=== PATIENT | female | born 2000 | race African-American/Black ===

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

== ENCOUNTER 2022-04-01 10:57 | Outpatient (REF) | payer OTHER, SELFPAY ==
[2022-04-01 13:24] LABS: Hematocrit 37.4 % (37.0-47.0); Hemoglobin 11.9 g/dl (12.0-16.0); Mean Corpuscular HGB Conc 31.8 g/dl (31.0-35.0); Mean Corpuscular Hemoglobin 29.6 pg (27.0-33.0); Mean Platelet Volume 11.4 fL (9.4-12.3); Platelet Count 322 X10*3/uL (160-400); Red Blood Count 4.02 X10*6/uL (4.20-5.50); Red Cell Distribution Width 13.2 % (11.0-16.0); White Blood Count 4.7 X10*3/uL (4.8-10.8)
[2022-04-01 13:51] LABS: Alanine Aminotransferase 18 U/L (0-31); Albumin Level 4.4 g/dL (3.5-5.0); Alkaline Phosphatase 70 U/L (39-117); Anion Gap 10 (12-20); Aspartate Amino Transferase 21 U/L (5-31); Bilirubin Total 0.5 mg/dL (0.0-1.0); Blood Urea Nitrogen 11 mg/dL (9-16); Calcium 9.1 mg/dL (8.4-10.2); Carbon Dioxide 26 mmol/L (22-29); Chloride 104 mmol/L (96-108); Cholesterol 175 mg/dL; Estimated Glomerular Filt Rate > 60; Glucose Fasting 80 mg/dL (60-99); HDL Cholesterol 43 mg/dL; LDL Cholesterol Calculated 123 mg/dl; Potassium 4.3 mmol/L (3.3-5.1); Sodium 136 mmol/L (135-145); Total Protein 7.6 g/dL (6.5-8.0); Triglycerides 49 mg/dL
[2022-04-01 14:12] LABS: TSH reflex Free T4 1.11 uIU/mL (0.32-4.0)
== END 2022-04-01 10:58 | disposition home or self-care (01) ==
LOC: HO.WFDLDS 10:57
PROVIDERS: Visit Provider Hospitalist
DX: Z00.00 Encounter for general adult medical examination without abnormal findings (principal)
CPT/HCPCS: 36415; 80053; 80061; 84443; 85027

== ENCOUNTER 2023-06-21 08:38 | Outpatient (AMB) | payer OTHER, SELFPAY ==
[2023-06-21 08:40] VITALS: BP 112/64; RESP 12; TEMP 36.5; BMI 26.3
--- NOTE | 2023-06-21 08:40 | MHC.PC.OV ---
Vital Signs 06/21/23 08:40 Height 5 ft 2.5 in Weight 146 lb 6 oz BMI 26.3 BP 112/64 Blood Pressure Location Lt brachial Position Sitting Respiration 12 Pulse Source Pulse Oximeter Temp 97.7 F Temp Source Temporal Artery Scan Oxygen Delivery Method Room Air Intake Visit Reasons: PE Intake Note: Patient states that she is wondering if provider could write a script for her sertraline, she just graduated college and was getting it prescribed by her school's [employer] and now that she graduated she would need someone to fill it. 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 Accompanied by: Self / Same As Patient Allergies No Known Allergies Allergy (Verified 06/21/23 08:55) Medication List - Last Reconciled 06/21/23 by Eugene Denson CNP etonogestrel (Nexplanon) subdermal sertraline 50 mg PO DAILY tretinoin 0.025% appl topical BEDTIME Tobacco use date assessed: 06/21/23 Dental Screening Dental Screen Date: 06/21/23 Did you have a dental visit in the last 12 months?: Yes Did you have a dental problem in the last 6 months where you did not have access to dental care?: No Was dental information given to patient?: Patient has dentist HPI HPI Comments History of Present Illness Details 23-year-old female presents for complete physical exam. Her last physical exam was in March 2022 by her former PCP, LILLIE, who was no longer in this practice. She is on Nexplanon contraceptive, tretinoin for acne, and sertraline for depression. She notes that she has been on sertraline, for difficulty concentrating and being organized, prescribed by the school [employer]. She states she graduated from college and requests that her PCP continue to prescribe the medication. She notes she has been taking the medication as prescribed with controlled symptoms. When asked, she states that she is interested in behavioral therapy. She notes that her last Pap smear test was at [facility] this year: normal She states she sexually active, in a monogamous relationship, and has no concerns for STD. 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 1. Little interest or pleasure in doing things: more than half the days 2. Feeling down, depressed, or hopeless: more than half the days 3. Trouble falling or staying asleep, or sleeping too much: nearly every day 4. Feeling tired or having little energy: nearly every day 5. Poor appetite or overeating: several days 6. Feeling bad about yourself - or that you are a failure or have let yourself or your family down: more than half the days 7. Trouble concentrating on things, such as reading the newspaper or watching television: nearly every day 8. Moving or speaking so slowly that other people could have noticed. Or the opposite - being so fidgety or restless that you have been moving around a lot more than usual: several days 9. Thoughts that you would be better off or of hurting yourself in some way: not at all Total score: 17 Depression Screening Interpretation: Positive Depression Screening Follow-up: Existing condition, In treatment and Community Mental Health Worker F/U Source: Developed by Drs. Tobias Olivia, Josey Hill, Larry Boucher and colleagues, with an educational zay from [employer]. Thrive Questionnaire Date Thrive assessed: 06/21/23 I am a: Patient What is your living situation today?: I have a steady place to live Within the past 12 months, did the food you bought not last and you didn't have the money to get more?: Never true Within the past 12 months, did you worry whether your food would run out before you got money to buy more?: Never true Do you have trouble paying for medicines?: No Do you have trouble getting transportation to medical appointments?: No Do you have trouble paying your heating and electricity bill?: No Do you have trouble taking care of your child, family member or friend?: No Do you have trouble with day-to-day activities such as bathing, preparing meals, shopping, managing finances, etc.?: No Are you currently unemployed and looking for a job?: No Are you interested in more education?: Yes Please select the resources that you would like help with: Education Currently or been in a relationship where the following occur: no concerns reported AUDIT C Alcohol Use Questionnaire (AUDIT-C) 1. How often do you have a drink containing alcohol?: 2-4 times a month 2. How many drinks containing alcohol do you have on a typical day when you are drinking?: 1 or 2 3. How often do you have six or more drinks on one occasion?: Never Total Score: 2 NINO-7 AMB Questionnaire NINO-7 Date NINO - 7 assessed: 06/21/23 Feeling nervous, anxious, or on edge: 2 = More than half the days Not being able to stop or control worryin = More than half the days Worrying too much about different things: 2 = More than half the days Trouble relaxin = More than half the days Being so restless that it is hard to sit still: 2 = More than half the days Becoming easily annoyed or irritable: 2 = More than half the days Feeling afraid as if something awful might happen: 1 = Several days Total NINO-7 score (0-4 normal; 5-9 mild; 10-14 moderate; 15-21 severe): 13 Source: Developed by Drs. Tobias Olivia, Josey Hill, Larry Boucher and colleagues, with an educational azy from [employer]. Review of Systems Const Details: Denies chills, Denies fatigue, Denies fever(s), Denies headache(s) and Denies weakness HEENT Denies change in vision, Denies dizziness, Denies headache(s), Denies hearing loss, Denies nasal congestion, Denies sinus pain, Denies sinus pressure and Denies sore throat Card Denies chest pain, Denies lightheadedness, Denies dyspnea and Denies other (palpitations) Resp Denies cough, Denies dyspnea and Denies wheezing GI Denies abdominal pain, Denies melena, Denies hematochezia, Denies change in bowel habits, Denies dyspepsia and Denies nausea Denies hematuria and Denies dysuria Musc Denies abnormal gait, Denies myalgias, Denies arthralgias, Denies numbness and Denies tingling Skin/Breast Denies rash, Denies unusual bruising and Denies wounds Neuro Denies abnormal gait, Denies dizziness, Denies headache(s), Denies memory loss, Denies numbness, Denies Sensory deficit (Neuro), Denies tingling and Denies weakness Psych Denies anxiety, Denies depression and Denies memory loss Endo Denies cold intolerance, Denies fatigue, Denies heat intolerance, Denies polydipsia and Denies polyuria Rob/Lymph Denies easy bleeding and Denies easy bruising Aller/Immun Denies wheezing Physical exam (Primary Care) Tobacco/Smoking Status: Tobacco use Status Tobacco use date assessed 04/01/22 04/01/22 10:28 Patient Tobacco Use Status Never used Tobacco 04/01/22 10:28 e-Cigarette/Vaping Use Never Used 04/01/22 10:28 Depression Screening Interpretation: Positive Depression Screening Follow-up: Existing condition, In treatment and Community Mental Health Worker F/U Thrive Assessment: Date of Thrive Assessment Date Thrive assessed 04/01/22 04/01/22 10:28 Currently or been in a relationship where the following occur: no concerns reported Const Other: General: no acute distress, well developed, alert and awake Nutritional Appearance: well nourished Orientation/consciousness: patient oriented x3 HENMT Head: Yes normocephalic and Yes atraumatic Ears: hearing grossly normal bilaterally and TM's normal bilaterally General nose exam: Normal external nose present and Normal nares present Mouth: Normal oral and palatal mucosa present and moist mucous membranes Teeth and gingiva: dentition normal Throat: Yes oropharynx normal Eyes Pupils: Equal, round and reactive pupils present and Pupil accommodation reflex normal EOM: EOMs intact bilaterally Neck Neck: Yes normal visual inspection, Yes no lymphadenopathy and Yes trachea midline Thyroid: Thyroid normal Carotids: no bruits Lymphatic: no lymphadenopathy noted Chest Chest palpation & inspection: normal inspection of the chest Resp Effort & Inspection: normal respiratory effort Auscultation: clear to auscultation bilaterally Cardio Rate: regular rate Rhythm: regular rhythm Heart sounds: S1 normal heart sound present, S2 normal heart sound present, no gallops, no murmurs and no rubs Bruits: no abdominal aortic bruits and no carotid bruits GI Palpation (GI): No Abdominal aortic bruit present, Soft to palpation, nontender, No hepatosplenomegaly present and No Rebound tenderness present Auscultation: normal bowel sounds General: Yes no CVA tenderness Back/Spine/Pelvis Back: no CVA tenderness Cervical Spine: cervical ROM normal and No Cervical spine tenderness Thoracic/Lumbar Spine: thoraco-lumbar ROM normal, No pain with thoraco-lumbar ROM, No thoracic spinal tenderness and No lumbar spinal tenderness Skin General: warm and dry. Normal skin color. Normal skin turgor Lesions: no lesions Rashes: no rashes Trauma: no lacerations or abrasions Wounds: no wounds Nails: normal Neuro General: patient oriented x3, gait normal and CN's II-XI intact bilaterally Cranial nerves: Yes Equal, round and reactive pupils present Cognition (Neuro): normal cognition Gait exam (Neuro): Normal gait present Motor exam (neuro): 5/5 motor strength present throughout Sensory Exam: No Sensory deficit (Neuro) Deep tendon reflexes (DTR's): Right patellar reflex intensity grade: 2+ and Left patellar reflex intensity grade: 2+ Extrem General: Yes normal to inspection, No edema and No calf tenderness Psych Appearance: grossly normal Affect: normal affect Attitude: cooperative Thought process: Normal thought process present Assessment and Plan Assessment & Plan (1) Normal physical exam: Code(s): Z00.00 - Encounter for general adult medical examination without abnormal findings Plan: No significant physical restrictions or limitations noted Advised to perform routine fasting blood work before her next visit Follow-up in 1 month or return sooner with symptoms or concerns Verbalized understanding and agreed with treatment plan. (2) Anxiety and depression: Code(s): F41.9 - Anxiety disorder, unspecified; F32.A - Depression, unspecified Plan: PHQ-9 and NINO-7 scores revealed moderately severe depression and moderate anxiety respectively Sertraline refill sent to the pharmacy. Take as prescribed Routine exercise encouraged She met with the community navigator who would refer her to a therapist Advised to follow-up in 1 month or return sooner with worsening or new symptoms Verbalized understanding and agreed with treatment plan. (3) Laboratory tests ordered as part of a complete physical exam (CPE): Code(s): Z00.00 - Encounter for general adult medical examination without abnormal findings Plan: Fasting labs ordered as part of a complete physical exam. Advised to fast for at least 10 hours before getting labs drawn. May drink water Verbalized understanding and agreed with treatment plan. Orders: Orders Complete Blood Count Auto Diff Today Z00.00 - Encounter for general adult medical examination without abnormal findings Comprehensive [place]. Panel Fast Today Z00.00 - Encounter for general adult medical examination without abnormal findings Lipid Panel Today Z00.00 - Encounter for general adult medical examination without abnormal findings TSH reflex Free T4 Today Z00.00 - Encounter for general adult medical examination without abnormal findings UA CC w/rflx Micro + Cult Today Z00.00 - Encounter for general adult medical examination without abnormal findings Medications: New sertraline 50 mg PO DAILY 30 tabs 3RF 30 days Coding Level of Care Code Est Pt Prev Care 18-39y(01856) Diagnoses Normal physical exam Z00.00 Anxiety and depression F41.9; F32.A Laboratory tests ordered as part of a complete physical exam (CPE) Z00.00
== END 2023-06-21 09:22 | disposition home or self-care (01) ==
PROVIDERS: PCP Hospitalist; Visit Provider Nurse Practitioner Family
DX: Z00.00 Encounter for general adult medical examination without abnormal findings (principal); F41.9 Anxiety disorder, unspecified; F32.A Depression, unspecified
CPT/HCPCS: 99395

== ENCOUNTER 2023-07-28 09:56 | Outpatient (AMB) | payer OTHER, SELFPAY ==
--- NOTE | 2023-07-28 10:03 | A.OFFPC_ITS ---
Vital Signs 07/28/23 10:04 Height 5 ft 2.5 in Weight 146 lb 8 oz BMI 26.4 BP 102/54 L Blood Pressure Location Rt brachial Position Sitting Respiration 13 Pulse 93 Pulse Source Pulse Oximeter Temp 98.9 F Temp Source Oral Pulse Oximetry (%) 99 Oxygen Delivery Method Room Air Intake Visit Reasons: BHUMIKA, f/u anxiety, depression, labs review Intake Note: Patient is here for a transfer of care from Nabila Garcia DNP to Eugene Denson DNP. Patient's last physical was 06/21/23 with MT. Patient is here to follow up with anxiety and depression. Patient has not obtained new labs since 04/01/2022. 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 Her last office visit was a month ago. A complete physical exam was done. Rou kvng labs were ordered. However, the patient has not gotten blood work done. She admits to taking her medications as prescribed. She reports irregular sleep patterns. She notes that she either sleep too much or not enough since her last visit. She takes melatonin intermittently. She states that she does not exercise. Our community navigator referred her to a therapist on her last visit. She notes that she has not been contacted to connect with a therapist. [facility] Medical History No pertinent past medical history Surgical History S/P wisdom tooth extraction Family History Mother Type II diabetes mellitus FH: HTN (hypertension) Social History Housing: Apartment Patient Tobacco Use Status: Never used Tobacco e-Cigarette/Vaping Use: Never Used Second Hand Smoke Exposure: Yes service: No Current occupational status: employed and student Current occupation: [employer] Cognitive needs: No Hearing needs: No Vision needs: No Questionnaire PHQ-9 Over the last 2 weeks, how often have you been bothered by any of the following problems? 1. Little interest or pleasure in doing things: more than half the days 2. Feeling down, depressed, or hopeless: several days 3. Trouble falling or staying asleep, or sleeping too much: nearly every day 4. Feeling tired or having little energy: nearly every day 5. Poor appetite or overeating: not at all 6. Feeling bad about yourself - or that you are a failure or have let yourself or your family down: not at all 7. Trouble concentrating on things, such as reading the newspaper or watching t elevision: nearly every day 8. Moving or speaking so slowly that other people could have noticed. Or the opposite - being so fidgety or restless that you have been moving around a lot more than usual: not at all 9. Thoughts that you would be better off or of hurting yourself in some way: not at all Total score: 12 Depression Screening Interpretation: Positive Depression Screening Follow-up: Existing condition, In treatment and Community Mental Health Worker F/U Depression Screening Done: Yes 80869 - PHQ-9 Billing: Yes Source: Developed by Drs. Tobias Olivia, Josey Hill, Larry Boucher and colleagues, with an educational zay from [employer]. Thrive Questionnaire Date Thrive assessed: 06/21/23 NINO-7 AMB Questionnaire NINO-7 Date NINO - 7 assessed: 07/28/23 Feeling nervous, anxious, or on edge: 2 = More than half the days Not being able to stop or control worryin = Several days Worrying too much about different things: 3 = Nearly every day Trouble relaxin = Nearly every day Being so restless that it is hard to sit still: 1 = Several days Becoming easily annoyed or irritable: 1 = Several days Feeling afraid as if something awful might happen: 1 = Several days Total NINO-7 score (0-4 normal; 5-9 mild; 10-14 moderate; 15-21 severe): 12 Source: Developed by Drs. Tobias Olivia, Josey Hill, Larry Boucher and colleagues, with an educational zay from [employer]. NINO-7 Assessment Billing NINO-7 Assessment Tool: NINO-7 Assessment 15809 Review of Systems Const Details: Const Denies chills, Denies fatigue, Denies fever(s), Denies headache(s) and Denies weakness ENT Denies dizziness and Denies headache(s) Card Denies chest pain, Denies lightheadedness, Denies dyspnea and Denies other (Palpitations) Resp Denies cough, Denies dyspnea, Denies wheezing and Denies other ( shortness of breath) GI Denies abdominal pain, Denies melena, Denies hematochezia, Denies change in bowel habits, Denies dyspepsia and Denies nausea Denies hematuria and Denies dysuria Musc Denies abnormal gait, Denies myalgias, Denies arthralgias, Denies numbness and Denies tingling Skin/Breast Denies rash, Denies unusual bruising and Denies wounds Neuro Denies abnormal gait, Denies dizziness, Denies headache(s), Denies memory loss, Denies numbness, Denies Sensory deficit (Neuro), Denies tingling and Denies weakness Psych Denies anxiety, Denies depression, Denies memory loss Endo Denies cold intolerance, Denies fatigue, Denies heat intolerance, Denies polydipsia and Denies polyuria Aller/Immun Denies wheezing Physical exam (Primary Care) Vital Signs: Last Vital Signs Temp 98.9 F 07/28/23 10:04 Pulse 93 07/28/23 10:04 Resp 13 07/28/23 10:04 BP 102/54 L 07/28/23 10:04 Pulse Ox 99 07/28/23 10:04 Oxygen Delivery Method Room Air 07/28/23 10:04 BMI result Body Mass Index 26.4 Tobacco/Smoking Status: Tobacco use Status Tobacco use date assessed 06/21/23 07/28/23 10:10 Patient Tobacco Use Status Never used Tobacco 07/28/23 10:10 e-Cigarette/Vaping Use Never Used 07/28/23 10:10 PHQ-9: PHQ-9 Score PHQ-9: Total score 12 07/28/23 10:22 Depression Screening Interpretation: Positive Depression Screening Follow-up: Existing condition, In treatment and Community Mental Health Worker F/U Thrive Assessment: Date of Thrive Assessment Date Thrive assessed 06/21/23 07/28/23 10:10 Const Other: General: no acute distress and well developed Nutritional Appearance: well nourished Orientation/consciousness: patient oriented x3 [facility]: Yes normocephalic and Yes atraumatic Eyes General: appearance normal, both eyes and all related structures Pupils: Equal, round and reactive pupils present EOM: EOMs intact bilaterally Resp Effort & Inspection: normal respiratory effort Auscultation: clear to auscultation bilaterally Cardio Rate: regular rate Rhythm: regular rhythm Heart sounds: S1 normal heart sound present, S2 normal heart sound present, no gallops, no murmurs and no rubs GI Palpation (GI): No Abdominal aortic bruit present, Soft to palpation, nontender, No hepatosplenomegaly present and No Rebound tenderness present Auscultation: normal bowel sounds General: Yes no CVA tenderness Back/Spine/Pelvis Back: no CVA tenderness Cervical Spine: cervical ROM normal and No Cervical spine tenderness Thoracic/Lumbar Spine: thoraco-lumbar ROM normal, No pain with thoraco-lumbar ROM, No thoracic spinal tenderness and No lumbar spinal tenderness Extrem General: Yes normal to inspection, No edema and No calf tenderness Skin General: warm and dry. Normal skin color. Normal skin turgor Lesions: no lesions Rashes: no rashes Trauma: no lacerations or abrasions Wounds: no wounds Nails: normal Neuro General: patient oriented x3, gait normal and no focal neuro deficit Cranial nerves: Yes Equal, round and reactive pupils present Cognition (Neuro): normal cognition Gait exam (Neuro): Normal gait present Sensory Exam: No Sensory deficit (Neuro) Psych Appearance: grossly normal Affect: normal affect Attitude: cooperative Thought process: Normal thought process present Assessment and Plan Assessment & Plan (1) Anxiety and depression: Code(s): F41.9 - Anxiety disorder, unspecified; F32.A - Depression, unspecified Plan: PHQ-9 and NINO-7 scores revealed moderate depression and anxiety She notes she has not been contacted to connect with a therapist She met with the community navigator who would follow-up with her existing therapist referral Advised continue to take sertraline as prescribed Routine exercise encouraged Advised to get routine fasting blood work done Follow-up in 2 months or return sooner with worsening or new symptoms Verbalized understanding and agreed with treatment plan. (2) Sleep disturbances: Code(s): G47.9 - Sleep disorder, unspecified Plan: She reports disturbed sleep patterns since her last visit. She sleeps inadequately or excessively Advised to take melatonin 3 mg every night She is a college student. Her sleep may also be affected by studies. Anxiety and depression may also be contributing factors Routine exercise encouraged Follow-up with worsening or new symptoms Verbalized understanding and agreed with treatment plan. Medications: Changed From sertraline 50 mg PO DAILY 30 days 30 tabs 3RF To sertraline 50 mg PO DAILY 90 days 90 tabs 1RF Coding Level of Care Code Est Pt Level 3 (37234) Diagnoses Anxiety and depression F41.9; F32.A Sleep disturbances G47.9 Additional Codes NINO-7 Assessment Billing - NINO-7 Assessment Tool: NINO-7 Assessment 07947 ([id number])
[2023-07-28 10:04] VITALS: BP 102/54; PULSE 93; RESP 13; TEMP 37.2; O2SAT 99; BMI 26.4
== END 2023-07-28 10:43 | disposition home or self-care (01) ==
PROVIDERS: PCP Hospitalist; Visit Provider Nurse Practitioner Family
DX: F41.9 Anxiety disorder, unspecified (principal); F32.A Depression, unspecified; G47.9 Sleep disorder, unspecified
CPT/HCPCS: 96127; 99213

== ENCOUNTER 2023-07-28 10:44 | Outpatient (REF) | payer OTHER, SELFPAY ==
[2023-07-28 14:26] LABS: MANUAL DIFF FLAG NO
[2023-07-28 14:28] LABS: Appearance Urine Turbid; Color Urine Dark Yellow; Glucose Urine UA Negative (Negative); Leukocyte Esterase Urine Negative (Negative); Nitrite Urine Negative (Negative); Specific Gravity - Urine >= 1.030 (1.005-1.025); Urine Blood Negative (Negative); Urine Ketones Trace mg/dL (Negative); Urine Protein Trace mg/dL (Neg-Trace)
[2023-07-28 14:37] LABS: Basophils Percent Auto 0.2 % (0-2); Eosinophils Absolute Auto 0.1 X10*3/uL (0.0-0.4); Eosinophils Percent Auto 1.2 % (0-4); Hematocrit 38.6 % (37.0-47.0); Hemoglobin 12.5 g/dl (12.0-16.0); Lymphocytes Absolute Auto 1.9 X10*3/uL (1.2-4.9); Lymphocytes Percent Auto 39.9 % (20-40); Mean Corpuscular HGB Conc 32.4 g/dl (31.0-35.0); Mean Corpuscular Hemoglobin 29.7 pg (27.0-33.0); Mean Corpuscular Volume 91.7 fL (80.0-98.0); Mean Platelet Volume 11.2 fL (9.4-12.3); Monocytes Absolute Auto 0.5 X10*3/uL (0.1-1.2); Neutrophils Absolute Auto 2.3 x10*3/uL (2.0-8.3); Neutrophils Percent Auto 47.7 % (45-73); Platelet Count 294 X10*3/uL (160-400); Red Blood Count 4.21 X10*6/uL (4.20-5.50); Red Cell Distribution Width 13.4 % (11.0-16.0); White Blood Count 4.8 X10*3/uL (4.8-10.8)
[2023-07-28 14:58] LABS: Alanine Aminotransferase 20 U/L (0-31); Albumin Level 4.3 g/dL (3.5-5.0); Alkaline Phosphatase 68 U/L (39-117); Anion Gap 9 (12-20); Aspartate Amino Transferase 21 U/L (5-31); Bilirubin Total 0.5 mg/dL (0.0-1.0); Blood Urea Nitrogen 10 mg/dL (9-16); Calcium 9.5 mg/dL (8.4-10.2); Carbon Dioxide 28 mmol/L (22-29); Chloride 107 mmol/L (96-108); Cholesterol 200 mg/dL (<200); Estimated Glomerular Filt Rate > 60; Glucose Fasting 82 mg/dL (60-99); HDL Cholesterol 44 mg/dL (>40); LDL Cholesterol Calculated 142 mg/dL (<100); Potassium 4.1 mmol/L (3.3-5.1); Sodium 140 mmol/L (135-145); Total Protein 8.1 g/dL (6.5-8.0); Triglycerides 74 mg/dL (<150)
[2023-07-28 15:29] LABS: TSH reflex Free T4 0.87 uIU/mL (0.32-4.0)
== END 2023-07-28 10:45 | disposition home or self-care (01) ==
LOC: HO.WFDLDS 10:44
PROVIDERS: Visit Provider Nurse Practitioner Family
DX: Z00.00 Encounter for general adult medical examination without abnormal findings (principal)
CPT/HCPCS: 36415; 80053; 80061; 81003; 84443; 85025

== ENCOUNTER 2024-04-04 16:03 | Outpatient (AMB) | payer OTHER, SELFPAY ==
--- NOTE | 2024-04-04 16:04 | MHC.PC.OV ---
Vital Signs 04/04/24 16:11 04/04/24 16:33 04/04/24 16:41 Height 5 ft 2.3 in Weight 145 lb 4 oz BMI 26.3 BP 118/67 166/81 H 110/80 Blood Pressure Location Rt brachial Lt brachial Rt brachial Position Sitting Sitting Sitting Respiration 16 Pulse 61 Pulse Source Pulse Oximeter Temp 97.5 F Temp Source Temporal Artery Scan Pulse Oximetry (%) 99 Oxygen Delivery Method Room Air Intake Visit Reasons: medication review Intake Note: patient here to follow up on medication. Laboratory Worker Required: No Is last menstrual period known: Yes Last menstrual period: 02/09/24 Post menopausal: No Patient : No Allergies No Known Allergies Allergy (Verified 04/04/24 16:20) Medication List - Last Reconciled 04/04/24 by Eugene Denson CNP etonogestrel (Nexplanon) subdermal sertraline 50 mg PO DAILY 30 days tretinoin 0.025% appl topical BEDTIME Tobacco use date assessed: 04/04/24 Dental Screening Dental Screen Date: 04/04/24 Did you have a dental visit in the last 12 months?: Yes Did you have a dental problem in the last 6 months where you did not have access to dental care?: No Was dental information given to patient?: Patient has dentist HPI HPI Comments History of Present Illness Details 23-year-old female presents for anxiety and depression follow-up She has history of anxiety and depression. She was on sertraline 50 mg daily until 01/2024 Her last office visit was on 07/28/2023. She has not followed up as planned She reports worsening anxiety and depressive symptoms. She states that Sertraline was initially effective. She was on the medication for almost a year. However, she started feeling lethargic on the medication, therefore, she stopped taking it and her lethargy resolved. She notes that she has been experiencing panic attacks, including heart racing, hand tremors, difficulty breathing, lack of concentration, and labile moods. Her panic attacks have been ongoing for the past 1 months and have progressively gotten worse, one to two times a daily at times. She states that she would sleep for 10-12 hours but still feels exhausted. She has not been exercising She had history of psychotherapy in college with significant improvement. 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 1. Little interest or pleasure in doing things: nearly every day 2. Feeling down, depressed, or hopeless: nearly every day 3. Trouble falling or staying asleep, or sleeping too much: nearly every day 4. Feeling tired or having little energy: nearly every day 5. Poor appetite or overeating: several days 6. Feeling bad about yourself - or that you are a failure or have let yourself or your family down: nearly every day 7. Trouble concentrating on things, such as reading the newspaper or watching television: nearly every day 8. Moving or speaking so slowly that other people could have noticed. Or the opposite - being so fidgety or restless that you have been moving around a lot more than usual: more than half the days 9. Thoughts that you would be better off or of hurting yourself in some way: not at all Total score: 21 Depression Screening Interpretation: Positive Depression Screening Follow-up: Existing condition, New Medication prescribed and Community Mental Health Worker F/U Depression Screening Done: Yes 12726 - PHQ-9 Billing: Yes Source: Developed by Drs. Tobias Olivia, Josey B.WLarry Astudillo and colleagues, with an educational zay from [employer]. Thrive Questionnaire Date Thrive assessed: 06/21/23 NINO-7 AMB Questionnaire NINO-7 Date NINO - 7 assessed: 04/04/24 Feeling nervous, anxious, or on edge: 3 = Nearly every day Not being able to stop or control worryin = Nearly every day Worrying too much about different things: 3 = Nearly every day Trouble relaxin = Nearly every day Being so restless that it is hard to sit still: 3 = Nearly every day Becoming easily annoyed or irritable: 2 = More than half the days Feeling afraid as if something awful might happen: 2 = More than half the days Total NINO-7 score (0-4 normal; 5-9 mild; 10-14 moderate; 15-21 severe): 19 Source: Developed by Drs. Tobias Olivia, Larry Berkowitz and colleagues, with an educational zay from [employer]. NINO-7 Assessment Billing NINO-7 Assessment Tool: NINO-7 Assessment 88200 Review of Systems Const Details: Const Denies chills, Denies fatigue, Denies fever(s), Denies headache(s) and Denies weakness ENT Denies dizziness and Denies headache(s) Card Denies chest pain, Denies lightheadedness, Denies dyspnea and Denies other (Palpitations) Resp Denies cough, Denies dyspnea, Denies wheezing and Denies other ( shortness of breath) GI Denies abdominal pain, Denies melena, Denies hematochezia, Denies change in bowel habits, Denies dyspepsia and Denies nausea Denies hematuria and Denies dysuria Musc Denies abnormal gait, Denies myalgias, Denies arthralgias, Denies numbness and Denies tingling Skin/Breast Denies rash, Denies unusual bruising and Denies wounds Neuro Denies abnormal gait, Denies dizziness, Denies headache(s), Denies memory loss, Denies numbness, Denies Sensory deficit (Neuro), Denies tingling and Denies weakness Psych Reports anxiety, Reports depression, Denies memory loss Endo Denies cold intolerance, Denies fatigue, Denies heat intolerance, Denies polydipsia and Denies polyuria Aller/Immun Denies wheezing Physical exam (Primary Care) Vital Signs: Last Vital Signs Temp 97.5 F 04/04/24 16:11 Pulse 61 04/04/24 16:11 Resp 16 04/04/24 16:11 BP 110/80 04/04/24 16:41 Pulse Ox 99 04/04/24 16:11 Oxygen Delivery Method Room Air 04/04/24 16:11 BMI result Body Mass Index 26.3 Tobacco/Smoking Status: Tobacco use Status Tobacco use date assessed 04/04/24 04/04/24 16:16 Patient Tobacco Use Status Never used Tobacco 04/04/24 16:07 e-Cigarette/Vaping Use Never Used 04/04/24 16:07 Depression Screening Interpretation: Positive Depression Screening Follow-up: Existing condition, New Medication prescribed and Community Mental Health Worker F/U Thrive Assessment: Date of Thrive Assessment Date Thrive assessed 06/21/23 04/04/24 16:07 Const Other: General: no acute distress and well developed Nutritional Appearance: well nourished Orientation/consciousness: patient oriented x3 HENMT Head: Yes normocephalic and Yes atraumatic Eyes General: appearance normal, both eyes and all related structures Pupils: Equal, round and reactive pupils present EOM: EOMs intact bilaterally Resp Effort & Inspection: normal respiratory effort Auscultation: clear to auscultation bilaterally Cardio Rate: regular rate Rhythm: regular rhythm Heart sounds: S1 normal heart sound present, S2 normal heart sound present, no gallops, no murmurs and no rubs GI Palpation (GI): No Abdominal aortic bruit present, Soft to palpation, nontender, No hepatosplenomegaly present and No Rebound tenderness present Auscultation: normal bowel sounds General: Yes no CVA tenderness Back/Spine/Pelvis Back: no CVA tenderness Cervical Spine: cervical ROM normal and No Cervical spine tenderness Thoracic/Lumbar Spine: thoraco-lumbar ROM normal, No pain with thoraco-lumbar ROM, No thoracic spinal tenderness and No lumbar spinal tenderness Extrem General: Yes normal to inspection, No edema and No calf tenderness Skin General: warm and dry. Normal skin color. Normal skin turgor Neuro General: patient oriented x3, gait normal and no focal neuro deficit Cranial nerves: Yes Equal, round and reactive pupils present Cognition (Neuro): normal cognition Gait exam (Neuro): Normal gait present Sensory Exam: No Sensory deficit (Neuro) Psych Appearance: grossly normal Affect: normal affect Attitude: cooperative Thought process: Normal thought process present Assessment and Plan Assessment & Plan (1) Anxiety and depression: Code(s): F41.9 - Anxiety disorder, unspecified; F32.A - Depression, unspecified Plan: Increased anxiety and depressive symptoms and panic attacks PHQ-9 and NINO-7 scores revealed severe depression and anxiety She was lethargic on sertraline Will start fluoxetine. Advised to take as prescribed. Instructed on the risks, benefits, and potential adverse reactions of the medication Routine exercise encouraged Message sent to the CHW to send a new referral for psychotherapy Follow-up in 2 weeks or sooner with worsening or new symptoms Verbalized understanding and agreed with treatment plan (2) Panic attacks: Code(s): F41.0 - Panic disorder [episodic paroxysmal anxiety] Plan: As above Medications: New fluoxetine 20 mg PO DAILY 30 days 30 tabs 3RF Discontinued sertraline Discontinued Reason: Doctor's Order 50 mg PO DAILY 30 days 30 tabs 0RF Coding Level of Care Code Est Pt Level 4 (23109) Complex EM visit Add On G2211 Diagnoses Anxiety and depression F41.9; F32.A Panic attacks F41.0 Additional Codes NINO-7 Assessment Billing - NINO-7 Assessment Tool: NINO-7 Assessment 10890 ([id number])
[2024-04-04 16:11] VITALS: BP 118/67; PULSE 61; RESP 16; TEMP 36.4; O2SAT 99; BMI 26.3
[2024-04-04 16:33] VITALS: BP 166/81
[2024-04-04 16:41] VITALS: BP 110/80
== END 2024-04-04 16:41 | disposition home or self-care (01) ==
PROVIDERS: PCP Nurse Practitioner Family; Visit Provider Nurse Practitioner Family
DX: F41.9 Anxiety disorder, unspecified (principal); F32.A Depression, unspecified; F41.0 Panic disorder [episodic paroxysmal anxiety]
CPT/HCPCS: 96127; 99214; G2211

== ENCOUNTER 2024-04-25 10:27 | Outpatient (AMB) | payer OTHER, SELFPAY ==
--- NOTE | 2024-04-25 10:31 | A.OFFPC_ITS ---
Vital Signs 04/25/24 10:36 Height 5 ft 2 in Weight 141 lb 4 oz BMI 25.8 BP 104/84 Blood Pressure Location Lt brachial Position Sitting Respiration 16 Pulse 81 Pulse Source Pulse Oximeter Temp 98.4 F Temp Source Oral Pulse Oximetry (%) 97 Oxygen Delivery Method Room Air Intake Visit Reasons: 2 wks anxiety, depression, panic attack Intake Note: patient here for 2 wk follow up for anxiety, depression, panic attacks. Post Adoption Coordinator Required: No Is last menstrual period known: Yes Last menstrual period: 02/09/24 Post menopausal: No Patient : No Allergies No Known Allergies Allergy (Verified 04/25/24 10:47) Medication List - Last Reconciled 04/25/24 by Eugene Denson CNP etonogestrel (Nexplanon) subdermal fluoxetine 20 mg PO DAILY 30 days tretinoin 0.025% appl topical BEDTIME Tobacco use date assessed: 04/25/24 Dental Screening Dental Screen Date: 04/25/24 Did you have a dental visit in the last 12 months?: No Did you have a dental problem in the last 6 months where you did not have access to dental care?: No Was dental information given to patient?: Patient has dentist HPI HPI Comments History of Present Illness Details 23-year-old female presents for anxiety, depression, and panic attacks follow-up She was started on fluoxetine about 3 weeks ago. She admits to taking the medication as prescribed without adverse reactions She notes that I feel a little bit better, but still continues to experience some panic symptoms, including tremors and racing heart, and mild shortness of breath, especially in the morning. She sleeps too much most times, but sometimes it hard to fall asleep. She has not started exercise She denies SI/HI CHW referred him to psych wellness group. However, she has not been contacted to establish with a therapist [facility]MERLY [facility] Medical History No pertinent past medical history Surgical History S/P wisdom tooth extraction Family History Mother Type II diabetes mellitus FH: HTN (hypertension) Social History (Reviewed 07/28/23 @ 10:11 by ENRIQUETA Bach Housing: Apartment Patient Tobacco Use Status: Never used Tobacco e-Cigarette/Vaping Use: Never Used Second Hand Smoke Exposure: Yes Patient : No service: No Current occupational status: employed and student Current occupation: [place] Cognitive needs: No Hearing needs: No Vision needs: No Female Reproductive History Menstrual Date of last menstrual period: 02/09/24 Questionnaire PHQ-9 Over the last 2 weeks, how often have you been bothered by any of the following problems? 1. Little interest or pleasure in doing things: more than half the days 2. Feeling down, depressed, or hopeless: more than half the days 3. Trouble falling or staying asleep, or sleeping too much: more than half the days 4. Feeling tired or having little energy: nearly every day 5. Poor appetite or overeating: several days 6. Feeling bad about yourself - or that you are a failure or have let yourself or your family down: nearly every day 7. Trouble concentrating on things, such as reading the newspaper or watching television: nearly every day 8. Moving or speaking so slowly that other people could have noticed. Or the opposite - being so fidgety or restless that you have been moving around a lot more than usual: several days 9. Thoughts that you would be better off or of hurting yourself in some way: not at all Total score: 17 Depression Screening Interpretation: Positive Depression Screening Follow-up: Existing condition and In treatment Depression Screening Done: Yes 97304 - PHQ-9 Billing: Yes Source: Developed by Drs. Tobias Olivia, Josey Hill, Larry Boucher and colleagues, with an educational zay from [employer]. Thrive Questionnaire Date Thrive assessed: 06/21/23 NINO-7 AMB Questionnaire NINO-7 Date NINO - 7 assessed: 04/25/24 Feeling nervous, anxious, or on edge: 2 = More than half the days Not being able to stop or control worryin = Nearly every day Worrying too much about different things: 3 = Nearly every day Trouble relaxin = More than half the days Being so restless that it is hard to sit still: 1 = Several days Becoming easily annoyed or irritable: 2 = More than half the days Feeling afraid as if something awful might happen: 1 = Several days Total NINO-7 score (0-4 normal; 5-9 mild; 10-14 moderate; 15-21 severe): 14 Source: Developed by Drs. Tobias Olivia, Josey Hill, Larry Boucher and colleagues, with an educational zay from [employer]. NINO-7 Assessment Billing NINO-7 Assessment Tool: NINO-7 Assessment 58786 Review of Systems Const Details: Const Denies chills, Denies fatigue, Denies fever(s), Denies headache(s) and Denies weakness ENT Denies dizziness and Denies headache(s) Card Denies chest pain, Denies lightheadedness, Denies dyspnea and Denies other (Palpitations) Resp Denies cough, Denies dyspnea, Denies wheezing and Denies other ( shortness of breath) GI Denies abdominal pain, Denies melena, Denies hematochezia, Denies change in bowel habits, Denies dyspepsia and Denies nausea Denies hematuria and Denies dysuria Musc Denies abnormal gait, Denies myalgias, Denies arthralgias, Denies numbness and Denies tingling Skin/Breast Denies rash, Denies unusual bruising and Denies wounds Neuro Denies abnormal gait, Denies dizziness, Denies headache(s), Denies memory loss, Denies numbness, Denies Sensory deficit (Neuro), Denies tingling and Denies weakness Psych Reports anxiety, Reports depression, Denies memory loss Endo Denies cold intolerance, Denies fatigue, Denies heat intolerance, Denies polydipsia and Denies polyuria Aller/Immun Denies wheezing Physical exam (Primary Care) Vital Signs: Last Vital Signs Temp 98.4 F 04/25/24 10:36 Pulse 81 04/25/24 10:36 Resp 16 04/25/24 10:36 BP 104/84 04/25/24 10:36 Pulse Ox 97 04/25/24 10:36 Oxygen Delivery Method Room Air 04/25/24 10:36 BMI result Body Mass Index 25.8 Tobacco/Smoking Status: Tobacco use Status Tobacco use date assessed 04/25/24 04/25/24 10:36 Patient Tobacco Use Status Never used Tobacco 04/25/24 10:33 e-Cigarette/Vaping Use Never Used 04/25/24 10:33 PHQ-9: PHQ-9 Score PHQ-9: Total score 17 04/25/24 10:42 Depression Screening Interpretation: Positive Depression Screening Follow-up: Existing condition and In treatment Thrive Assessment: Date of Thrive Assessment Date Thrive assessed 06/21/23 04/25/24 10:33 Const Other: General: no acute distress and well developed Nutritional Appearance: well nourished Orientation/consciousness: patient oriented x3 HENKS Head: Yes normocephalic and Yes atraumatic Eyes General: appearance normal, both eyes and all related structures Pupils: Equal, round and reactive pupils present EOM: EOMs intact bilaterally Resp Effort & Inspection: normal respiratory effort Auscultation: clear to auscultation bilaterally Cardio Rate: regular rate Rhythm: regular rhythm Heart sounds: S1 normal heart sound present, S2 normal heart sound present, no gallops, no murmurs and no rubs GI Palpation (GI): No Abdominal aortic bruit present, Soft to palpation, nontender, No hepatosplenomegaly present and No Rebound tenderness present Auscultation: normal bowel sounds General: Yes no CVA tenderness Back/Spine/Pelvis Back: no CVA tenderness Cervical Spine: cervical ROM normal and No Cervical spine tenderness Thoracic/Lumbar Spine: thoraco-lumbar ROM normal, No pain with thoraco-lumbar ROM, No thoracic spinal tenderness and No lumbar spinal tenderness Extrem General: Yes normal to inspection, No edema and No calf tenderness Skin General: warm and dry. Normal skin color. Normal skin turgor Neuro General: patient oriented x3, gait normal and no focal neuro deficit Cranial nerves: Yes Equal, round and reactive pupils present Cognition (Neuro): normal cognition Gait exam (Neuro): Normal gait present Sensory Exam: No Sensory deficit (Neuro) Psych Appearance: grossly normal Affect: normal affect Attitude: cooperative Thought process: Normal thought process present Assessment and Plan Assessment & Plan (1) Anxiety and depression: Code(s): F41.9 - Anxiety disorder, unspecified; F32.A - Depression, unspecified Plan: She notes improvement of anxiety and depressive symptoms but still continues to experience some panic symptoms PHQ-9 and NINO-7 scores revealed moderately severe depression and moderate anxiety respectively Continue to take fluoxetine as prescribed Will start hydroxyzine 25 mg twice daily to target anxiety, panic symptoms, and sleep disturbance. Instructed on the risks, benefits, and potential adverse reactions of the medications Routine exercise encouraged She met with the CHW to discuss psychotherapy referral Advised to follow-up in 2 weeks or sooner with worsening or new symptoms Verbalized understanding and agreed with the treatment plan (2) Panic attacks: Code(s): F41.0 - Panic disorder [episodic paroxysmal anxiety] Plan: As above Medications: New hydroxyzine HCl 25 mg PO BID PRN 30 tabs 1RF itching Coding Level of Care Code Est Pt Level 4 (66476) Complex EM visit Add On G2211 Diagnoses Anxiety and depression F41.9; F32.A Panic attacks F41.0 Additional Codes NINO-7 Assessment Billing - NINO-7 Assessment Tool: NINO-7 Assessment [id number] ([id number])
[2024-04-25 10:36] VITALS: BP 104/84; PULSE 81; RESP 16; TEMP 36.9; O2SAT 97; BMI 25.8
== END 2024-04-25 11:06 | disposition home or self-care (01) ==
PROVIDERS: PCP Nurse Practitioner Family; Visit Provider Nurse Practitioner Family
DX: F41.9 Anxiety disorder, unspecified (principal); F32.A Depression, unspecified; F41.0 Panic disorder [episodic paroxysmal anxiety]
CPT/HCPCS: 96127; 99214; G2211

== ENCOUNTER 2024-05-16 09:59 | Outpatient (AMB) | payer OTHER, SELFPAY ==
--- NOTE | 2024-05-16 10:02 | A.OFFPC_ITS ---
Vital Signs 05/16/24 10:07 Height 5 ft 2 in Weight 142 lb BMI 26.0 BP 112/70 Blood Pressure Location Rt brachial Position Sitting Respiration 16 Pulse 94 Pulse Source Pulse Oximeter Temp 98.2 F Temp Source Oral Pulse Oximetry (%) 98 Oxygen Delivery Method Room Air Intake Visit Reasons: 3 wks anxiety, depression, panic attack Intake Note: patient here for 3 week follow up on anxiety, depression, and panic attack. 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 Is last menstrual period known: Yes Last menstrual period: 02/09/24 Post menopausal: No Patient : No Allergies No Known Allergies Allergy (Verified 05/16/24 10:34) Medication List - Last Reconciled 05/16/24 by Eugene Denson CNP etonogestrel (Nexplanon) subdermal fluoxetine 20 mg PO DAILY 30 days hydroxyzine HCl 25 mg PO BID PRN tretinoin 0.025% appl topical BEDTIME Tobacco use date assessed: 05/16/24 Dental Screening Dental Screen Date: 04/25/24 HPI HPI Comments History of Present Illness Details 23-year-old female presents for anxiety, depression, and panic attacks follow-up She admits to taking her medications as prescribed without adverse reactions She reports controlled anxiety and depressive symptoms on current treatment regimen She is excited after she learned last week that she is accepted to medical 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 She will be traveling to [facility] on Wednesday. She plans on returning in August She was contacted for psychotherapy and was scheduled to start in June. However, she plans on utilizing psychotherapy services at the [facility]. She will also inquire about getting her current medication prescribed from the [facility] She denies acute symptoms at this time She request lab work for T spot, MMR, and varicella for school. 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 1. Little interest or pleasure in doing things: more than half the days 2. Feeling down, depressed, or hopeless: more than half the days 3. Trouble falling or staying asleep, or sleeping too much: several days 4. Feeling tired or having little energy: more than half the days 5. Poor appetite or overeating: not at all 6. Feeling bad about yourself - or that you are a failure or have let yourself or your family down: more than half the days 7. Trouble concentrating on things, such as reading the newspaper or watching television: several days 8. Moving or speaking so slowly that other people could have noticed. Or the opposite - being so fidgety or restless that you have been moving around a lot more than usual: not at all 9. Thoughts that you would be better off or of hurting yourself in some way: not at all Total score: 10 Depression Screening Interpretation: Positive Depression Screening Follow-up: Existing condition and In treatment Depression Screening Done: Yes 31785 - PHQ-9 Billing: Yes Source: Developed by Drs. Tobias Olivia, Josey Hill, Larry Boucher and colleagues, with an educational zay from [email or web address]. Thrive Questionnaire Date Thrive assessed: 06/21/23 NINO-7 AMB Questionnaire NINO-7 Date NINO - 7 assessed: 05/16/24 Feeling nervous, anxious, or on edge: 2 = More than half the days Not being able to stop or control worryin = Several days Worrying too much about different things: 2 = More than half the days Trouble relaxin = More than half the days Being so restless that it is hard to sit still: 1 = Several days Becoming easily annoyed or irritable: 2 = More than half the days Feeling afraid as if something awful might happen: 3 = Nearly every day Total NINO-7 score (0-4 normal; 5-9 mild; 10-14 moderate; 15-21 severe): 13 Source: Developed by Drs. Tobias Olivia, Josey Hill, Larry Boucher and colleagues, with an educational zay from [email or web address]. NINO-7 Assessment Billing NINO-7 Assessment Tool: NINO-7 Assessment 55419 Review of Systems Const Details: Const Denies chills, Denies fatigue, Denies fever(s), Denies headache(s) and Denies weakness ENT Denies dizziness and Denies headache(s) Card Denies chest pain, Denies lightheadedness, Denies dyspnea and Denies other (Pa lpitations) Resp Denies cough, Denies dyspnea, Denies wheezing and Denies other ( shortness of breath) GI Denies abdominal pain, Denies melena, Denies hematochezia, Denies change in bowel habits, Denies dyspepsia and Denies nausea Denies hematuria and Denies dysuria Musc Denies abnormal gait, Denies myalgias, Denies arthralgias, Denies numbness and Denies tingling Skin/Breast Denies rash, Denies unusual bruising and Denies wounds Neuro Denies abnormal gait, Denies dizziness, Denies headache(s), Denies memory loss, Denies numbness, Denies Sensory deficit (Neuro), Denies tingling and Denies weakness Psych Denies anxiety, Denies depression, Denies memory loss Endo Denies cold intolerance, Denies fatigue, Denies heat intolerance, Denies polydipsia and Denies polyuria Aller/Immun Denies wheezing Physical exam (Primary Care) Vital Signs: Last Vital Signs Temp 98.2 F 05/16/24 10:07 Pulse 94 05/16/24 10:07 Resp 16 05/16/24 10:07 BP 112/70 05/16/24 10:07 Pulse Ox 98 05/16/24 10:07 Oxygen Delivery Method Room Air 05/16/24 10:07 BMI result Body Mass Index 26.0 Tobacco/Smoking Status: Tobacco use Status Tobacco use date assessed 05/16/24 05/16/24 10:10 Patient Tobacco Use Status Never used Tobacco 05/16/24 10:03 e-Cigarette/Vaping Use Never Used 05/16/24 10:03 PHQ-9: PHQ-9 Score PHQ-9: Total score 10 05/16/24 10:10 Depression Screening Interpretation: Positive Depression Screening Follow-up: Existing condition and In treatment Thrive Assessment: Date of Thrive Assessment Date Thrive assessed 06/21/23 05/16/24 10:03 Const Other: General: no acute distress and well developed Nutritional Appearance: well nourished Orientation/consciousness: patient oriented x3 HENMT Head: Yes normocephalic and Yes atraumatic Eyes General: appearance normal, both eyes and all related structures Pupils: Equal, round and reactive pupils present EOM: EOMs intact bilaterally Resp Effort & Inspection: normal respiratory effort Auscultation: clear to auscultation bilaterally Cardio Rate: regular rate Rhythm: regular rhythm Heart sounds: S1 normal heart sound present, S2 normal heart sound present, no gallops, no murmurs and no rubs GI Palpation (GI): No Abdominal aortic bruit present, Soft to palpation, nontender, No hepatosplenomegaly present and No Rebound tenderness present Auscultation: normal bowel sounds General: Yes no CVA tenderness Back/Spine/Pelvis Back: no CVA tenderness Cervical Spine: cervical ROM normal and No Cervical spine tenderness Thoracic/Lumbar Spine: thoraco-lumbar ROM normal, No pain with thoraco-lumbar ROM, No thoracic spinal tenderness and No lumbar spinal tenderness Extrem General: Yes normal to inspection, No edema and No calf tenderness Skin General: warm and dry. Normal skin color. Normal skin turgor Neuro General: patient oriented x3, gait normal and no focal neuro deficit Cranial nerves: Yes Equal, round and reactive pupils present Cognition (Neuro): normal cognition Gait exam (Neuro): Normal gait present Sensory Exam: No Sensory deficit (Neuro) Psych Appearance: grossly normal Affect: normal affect Attitude: cooperative Thought process: Normal thought process present Assessment and Plan Assessment & Plan (1) Anxiety and depression: Code(s): F41.9 - Anxiety disorder, unspecified; F32.A - Depression, unspecified Plan: Controlled anxiety and depressive symptoms PHQ-9 and NINO-7 scores revealed moderate depression and anxiety respectively Continue current treatment regimen. Medications refilled with 90 day supply Routine exercise encouraged Follow-up in 4 months or sooner with worsening or new symptoms Verbalized understanding and agreed with treatment plan (2) Panic attacks: Code(s): F41.0 - Panic disorder [episodic paroxysmal anxiety] Plan: Plan as above (3) Encounter for counseling regarding immunization: Code(s): Z71.85 - Encounter for immunization safety counseling Plan: T spot, MMR, and varicella Labs ordered. Will review results and complete and sign health form Orders: Orders T Spot TB Today Z71. - Encounter for immunization safety counseling Hepatitis B,C Profile Today Z71. - Encounter for immunization safety counseling MMR IgG Measles Mumps Rubella Today Z71. - Encounter for immunization safety counseling Varicella IgG Antibody Today Z71. - Encounter for immunization safety counseling Medications: Changed From fluoxetine 20 mg PO DAILY 30 days 30 tabs 3RF To fluoxetine 20 mg PO DAILY 90 days 90 tabs 1RF Refilled hydroxyzine HCl 25 mg PO BID PRN 90 tabs 1RF itching Coding Level of Care Code Est Pt Level 4 (93356) Complex EM visit Add On G2211 Diagnoses Anxiety and depression F41.9; F32.A Panic attacks F41.0 Encounter for counseling regarding immunization Z71. Additional Codes NINO-7 Assessment Billing - NINO-7 Assessment Tool: NINO-7 Assessment 66042 ([id number])
[2024-05-16 10:07] VITALS: BP 112/70; PULSE 94; RESP 16; TEMP 36.8; O2SAT 98; BMI 26.0
== END 2024-05-16 10:49 | disposition home or self-care (01) ==
PROVIDERS: PCP Nurse Practitioner Family; Visit Provider Nurse Practitioner Family
DX: F41.9 Anxiety disorder, unspecified (principal); F32.A Depression, unspecified; F41.0 Panic disorder [episodic paroxysmal anxiety]; Z71.85 Encounter for immunization safety counseling
CPT/HCPCS: 96127; 99214; G2211

== ENCOUNTER 2024-05-16 10:59 | Outpatient (REF) | payer OTHER, SELFPAY ==
[2024-05-17 05:06] LABS: HBS Num1 9.07 mIU/mL (0-7.99); HBc Num1 0.23 S/CO (0.00-0.79); Hepatitis B Core Antibody Nonreactive (Nonreactive); Hepatitis B Surface Antigen Negative (Negative); ~HepC Num1 0.16 S/CO (0.00-0.79); ~Hepatitis C Antibody Nonreactive (Nonreactive)
[2024-05-17 06:10] LABS: HBS Num2 8.56 mIU/mL (0-7.99); HBS Num3 8.35 mIU/mL (0-7.99); ~Hepatitis B Surface Antibody GRAYZONE (Nonreactive)
[2024-05-17 21:54] LABS: Varicella IgG Antibody >4000.00 index
[2024-05-18 02:08] LABS: Mumps Virus IgG Antibody >300.00 AU/mL; Rubella IgG Antibody 8.42 Index
[2024-05-19 00:27] LABS: TS Negative Control Passed; TS Panel A 0; TS Panel B 0; TS Positive Control Passed; TSpotTB Negative (Negative)
== END 2024-05-16 11:00 | disposition home or self-care (01) ==
LOC: HO.WFDLDS 10:59
PROVIDERS: Visit Provider Nurse Practitioner Family
DX: Z71.85 Encounter for immunization safety counseling (principal)
CPT/HCPCS: 36415; 86481; 86704; 86706; 86735; 86762; 86765; 86787; 86803; 87340

== ENCOUNTER → 2024-05-19 15:35 | Outpatient (AMB) | payer OTHER, SELFPAY ==
--- OUTSIDE RECORDS SUMMARY | 2024-05-19 15:37 | XMS_ITS | Continuity of Care Document ---
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 Name Role Phone Petey ALICIA, Rosalinda Primary Care Physician [phone] Encounter [facility] [place] Date(s): 01/23/20 - 01/30/20 [facility] [address] [place] [address]- [facility] Attending Physician: Peter Corral MD Allergies, Adverse Reactions, Alerts Substance Reaction Severity Status NKA Active Medications inFLIXimab-dyyb 100 mg intravenous injection See Instructions, 600 mg q 6 weeks IV Infusion, # 6 each, 11 Refills, Maintenance, 11/15/19 11:31:00 EST, [facility], 159.2, cm, 04/27/19 15:25:00 EDT, Height, 55.5, kg, 04/27/19 15:25:00 EDT, Dry Weight Start Date: 11/15/19 Status: Ordered Ortho Micronor 0.35 mg oral tablet 1 tablet = 0.35 mg, By Mouth, Daily, # 84 tablet, 2 Refills, Maintenance, 11/28/19 16:36:00 EDT, Tablet, [id number], please give 3 month supply (3 packs) at a time, 161, cm, 11/28/19 16:07:00EDT, Height, 60.5, kg, 11/28/19 16:07:00 EDT, Dry W... Start Date: 11/28/19 Status: Ordered Pepcid AC Maximum Strength 20 mg oral tablet 20 mg, By Mouth, 2 times a day, # 60 Doses, Refills 6, Tot. Refills 6, Maintenance, 08/05/19 12:19:20 EST, Route to Pharmacy Electronically, [id number], [id number] Start Date: 08/05/19 Stop Date: 03/02/20 Status: Ordered Vitamin D3 2000 intl units oral tablet 1 tablet = 2,000 International_Units, By Mouth, Daily, # 30 tablet, 6 Refills, Maintenance, 01/11/19 22:02:29 EDT Start Date: 01/11/19 Stop Date: 08/09/19 Status: Ordered Problem List Condition Effective Dates Status Health Status Inform ant Abdominal pain(Confirmed) Active Crohns disease(Confirmed) Active Vital Signs Most recent to oldest [Reference Range]: 1 Height 161 cm (01/23/20 8:38 AM) Weight 60.5 kg (01/23/20 8:38 AM) Body Mass Index [18.5-24.99] 23.34 (01/23/20 8:38 AM) Dry Weight 60.5 kg (01/23/20 8:38 AM) Social History Social History Type Response Smoking Status Never (less than 100 in lifetime); Tobacco user in household: No entered on: 12/14/18 Sex
--- OUTSIDE RECORDS SUMMARY | 2024-05-19 15:37 | XMS_ITS | Continuity of Care Document ---
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 Name Role Phone Radha FELICIANO, Nabila Rucker Primary Care Physician [phone] [id number] Date[facility] - [facility]16/[facility] [employer] [facility] [address], [address] [place], [place] [address] Allergies, Adverse Reactions, Alerts No Known Allergies Medications ethinyl estradiol-norethindrone 35 mcg-1 mg oral tablet 1 tablet, By Mouth, Daily, # 28 tablet, 6 Refills, Maintenance, 12/29/22 17:41:00 EDT, Tablet, [id number], Partial fill upon patient request if the prescription is for a schedule II opioid drug., 1 tablet By Mouth Daily, 160.8, cm, 12/29/22 15... Start Date: 12/29/22 Status: Ordered melatonin 3 mg oral tablet 1 tablet = 3 mg, By Mouth, Daily at bedtime, PRN for insomnia, 1-2 tablets at night as needed, # 60tablet, 1 Refills, Maintenance, 12/02/20 11:04:00 EDT, Tablet, [id number], Partial fill upon patient request if the prescription is for a sched... Start Date: 12/02/20 Status: Ordered Nexplanon 68 mg subcutaneous implant 1 each = 68 mg, Subcutaneous Infusion, Once, mail to [address] [place] [address], [address], # 1 each, 0 Refills, Soft Stop, 03/17/23 10:48:00 EDT, [facility] fill upon patient request if the prescription is for a schedule I... Start Date: 03/17/23 Status: Ordered sertraline 50 mg oral tablet 1 tablet = 50 mg, By Mouth, Daily, # 30 tablet, 0 Refills, Maintenance, 12/29/22 15:13:00 EDT, Tablet, Partial fill upon patient request if the prescription is for a schedule II opioid drug. Start Date: 12/29/22 Status: Ordered Problem List Condition Confirmation Course Effective Dates Status Health St atus Informant Abdominal pain Confirmed Active Crohns disease Confirmed Active Dysmenorrhea Confirmed Active autoimmune hepatitis Confirmed Active Social History Social History Type Response Smoking Status Never (less than 100 in lifetime); Tobacco user in household: No entered on: 12/14/18 Sex Patient Care team information Care Team Personnel Name: Masha Perez RN Position: S RN Member Role: Primary Care Nurse Name: Nabila Garcia NP Position: Reference Physician Member Role: PCP Address: Address: [address] [place] [address]- Care Team Related Persons Name: BELLA BANGURA Address: [address] [place] [address] Name: WONG LEVY Address: [address] [place] [address]
--- OUTSIDE RECORDS SUMMARY | 2024-05-19 15:37 | XMS_ITS | Continuity of Care Document ---
Author Organization [facility] Address [address] [place] [address]- Care Team Providers Care Heel Reducer Name Role Phone Petey ALICIA, Rosalinda Primary Care Physician [place] [facility] [place] 03/02/21 [facility] [address] [place] [id number] Allergies, Adverse Reactions, Alerts Substance Reaction Severity Status NKA Active Medications chlorhexidine topical 0.12% liquid 15 mL = 0.018 Gm, Swish and Spit, 2 times a day, # 210 mL, 1 Refills, Maintenance, 12/04/20 16:19:00 EDT, Oral Rinse, [id number], Partial fill upon patient request if the prescription is for a schedule II opioid drug., 15 mL Swish and Spit 2 t... Start Date: 12/04/20 Stop Date: 12/18/20 Status: Ordered melatonin 3 mg oral tablet 1 tablet = 3 mg, By Mouth, Daily at bedtime, PRN for insomnia, 1-2 tablets at night as needed, # 60tablet, 1 Refills, Maintenance, 12/02/20 11:04:00 EDT, Tablet, [id number], Partial fill upon patient request if the prescription is for a sched... Start Date: 12/02/20 Status: Ordered Ortho Micronor 0.35 mg oral tablet 1 tablet = 0.35 mg, By Mouth, Daily, # 84 tablet, 2 Refills, Maintenance, 12/02/20 11:08:00 EDT, Tablet, [id number], please give 3 month supply (3 packs) at a time, 159.6, cm, 12/02/20 10:09:00 EDT, Height, 60.3, kg, 12/02/20 10:13:00 EDT, Dry... Start Date: 12/02/20 Status: Ordered Vitamin D3 2000 intl units oral tablet 1 tablet = 2,000 International_Units, By Mouth, Daily, # 30 tablet, 6 Refills, Maintenance, 02/06/20 15:44:00 EDT, [id number], 161, cm, 01/23/20 8:38:00 EDT, Height, 60.5, kg, 01/23/20 8:38:00 EDT, Dry Weight Start Date: 02/06/20 Stop Date: 09/03/20 Status: Ordered Problem List Condition Effective Dates Status Health Status Inform ant Abdominal pain(Confirmed) Active Crohns disease(Confirmed) Active Hepatitis(Confirmed) Active Social History Social History Type Response Smoking Status Never (less than 100 in lifetime); Tobacco user in household: No entered on: 12/14/18 Sex
--- OUTSIDE RECORDS SUMMARY | 2024-05-19 15:37 | XMS_ITS | Continuity of Care Document ---
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 [place]s): 12/12/21 - 01/11/22 [facility] Attending Physician: Margaux Jauregui Admitting Physician: Margaux Jauregui Referring Physician: Margaux Jauregui Allergies, Adverse Reactions, Alerts No Known Allergies Medications chlorhexidine topical 0.12% liquid 15 mL = 0.018 Gm, Swish and Spit, 2 times a day, # 210 mL, 1 Refills, Maintenance, 12/04/20 16:19:00 EDT, Oral Rinse, [id number], Partial fill upon patient request if the prescription is for a schedule II opioid drug., 15 mL Swish and Spit 2 t... Start Date: 12/04/20 Stop Date: 12/18/20 Status: Ordered levonorgestrel 1.5 mg oral tablet 1.5 mg, 1, tablet, By Mouth, Once, # 1 tablet, Refills 1, Tot. Refills 1, Soft Stop, 06/12/21 9:32:00 EDT, Route to Pharmacy Electronically, [facility]/pharmacy #[id number], Partial fill upon patient request if the prescription is for a schedule II opioid drug., 1... Start Date: 06/12/21 Status: Ordered melatonin 3 mg oral tablet 1 tablet = 3 mg, By Mouth, Daily at bedtime, PRN for insomnia, 1-2 tablets at night as needed, # 60tablet, 1 Refills, Maintenance, 12/02/20 11:04:00 EDT, Tablet, [id number], Partial fill upon patient request if the prescription is for a sched... Start Date: 12/02/20 Status: Ordered norethindrone 0.35 mg oral tablet 1 tablet = 0.35 mg, By Mouth, Daily, # 84 tablet, 3 Refills, Maintenance, 12/12/21 14:04:00 EDT, Tablet, [facility]/pharmacy #[id number], Partial fill upon patient request if the prescription is for a schedule IIopioid drug., 160, cm, 12/12/21 13:24:00 EDT, [place]. Start Date: 12/12/21 Status: Ordered Vitamin D3 2000 intl units [...]
--- OUTSIDE RECORDS SUMMARY | 2024-05-19 15:37 | XMS_ITS | Continuity of Care Document ---
Author Organization [facility] Silvestre [employer] Address [address] [place] [address], [address] [place] [address]- Care Team Providers Care Slat Twister Name Role Phone Radha FELICIANO, Nabila Rucker Primary Care Physician [phone] [id number] Date(s): [facility]/23 - 04/26/23 [facility] [employer] [facility] [address] [place] [address], [address] [place] [address]- Attending Physician: Michael Hinojosa MD Referring Physician: Lars Mcgregor Allergies, Adverse Reactions, Alerts No Known Allergies [...] 68 mg, Subcutaneous Infusion, Once, mail to [address] [place] [address], [id number], # 1 each, 0 Refills, Soft Stop, 03/17/23 10:48:00 EDT, [facility] Partial fill upon patient request if the [...] Dysmenorrhea Confirmed Active autoimmune hepatitis Confirmed Active Vital Signs Most recent to oldest [Reference Range]: 1 Height 160.8 cm (04/19/23 3:45 PM) Weight 66.81 kg (04/19/23 3:45 PM) Body Mass Index [18.5-24.99 kg/m2] 25.84 kg/m2 *H* (04/19/23 3:45 PM) Blood Pressure [90-138/55-84 mm Hg] 127/ 76mm Hg (04/19/23 3:45 PM) Blood pressure sites Arm, left (04/19/23 3:45 PM) Weight Obtained Via Standing scale (04/19/23 3:45 PM) Social History Social History Type Response Smoking Status Never (less than 100 in lifetime); Tobacco user in household: No entered on: 12/14/18 Sex Patient Care team information Care Team Personnel Name: Masha Perez RN Position: S RN Member Role: Primary Care Nurse Name: Nabila Garcia NP Position: Reference Physician Member Role: PCP Address: Address: [address] [place] [address]- Care Team Related Persons Name: BELLA BANGURA Address: [address] [place] [address] Name: WONG LEVY Address: [address] [place] [address]
--- OUTSIDE RECORDS SUMMARY | 2024-05-19 15:37 | XMS_ITS | Continuity of Care Document ---
Author Organization [facility] [employer] [facility] Address [address] [place] [address], [address] [place] [address]- Care Team Providers Care Set Up Operator Tool Name Role Phone Radha FELICIANO, Nbaila Rucker Primary Care Physician [id number] Date(s): 03/17/23 - 04/16/23 [facility] [employer] [facility] [address] [facility] [place], [place] [address] Allergies, [...] 68 mg, Subcutaneous Infusion, Once, mail to [address] [place] [address], [id number], # 1 each, 0 Refills, Soft Stop, 03/17/23 10:48:00 EDT, [facility], Partial fill upon patient request if the [...] Reference Physician Member Role: PCP Address: Address: [address] [place] [address]- Care Team Related Persons Name: BELLA BAGNURA Address: [address] [place] [address] Name: WONG LEVY Address: [address] [place] [address]
--- OUTSIDE RECORDS SUMMARY | 2024-05-19 15:37 | XMS_ITS | Continuity of Care Document ---
Author Organization [facility] Address [address] [place] [address]- Care Team Providers Care Creative Perfumer Name Role Phone Radha FELICIANO, Nabila Rucker Primary Care Physician En[place] [facility] [place] Date(s): 07/17/22 - 08/16/22 [facility] [address] [place] [address]- [place] Allergies, Adverse Reactions, Alerts No Known Allergies Medications Low-Ogestrel 30 mcg-0.3 mg oral tablet 1 tablet, By Mouth, Daily, # 28 tablet, 3 Refills, Maintenance, 07/06/22 14:24:00 EDT, Tablet, [id number], Partial fill upon patient request if the prescription is for a schedule II opioid drug., 1 tablet By Mouth Daily, 160.8, cm, 05/28/22 11... Start Date: 07/06/22 Status: Ordered melatonin 3 mg oral tablet 1 tablet = 3 mg, By Mouth, Daily at bedtime, PRN for insomnia, 1-2 tablets at night as needed, # 60tablet, 1 Refills, Maintenance, 12/02/20 11:04:00 EDT, Tablet, [id number], Partial fill upon patient request if the prescription is for a sched... Start Date: 12/02/20 Status: Ordered Strattera 25 mg oral capsule 1 capsule = 25 mg, By Mouth, Daily in AM, # 30 capsule, 0 Refills, Maintenance, 07/06/22 13:31:00 EDT, Capsule, Partial fill upon patient request if the prescription is for a schedule II opioid drug. Start Date: 07/06/22 Status: Ordered Problem List Condition Confirmation Course Effective Dates Status Health St atus Informant Abdominal pain Confirmed Active Crohns disease Confirmed Active Hepatitis Confirmed Active Social History Social History Type Response Smoking Status Never (less than 100 in lifetime); Tobacco user in household: No entered on: 12/14/18 Sex Patient Care team information Care Team Personnel Name: Masha Perez RN Position: S RN Member Role: Primary Care Nurse Name: Bette Morgan RN Position: S RN Member Role: Primary Care Nurse Name: Nabila Garcia NP Position: Reference Physician Member Role: PCP Address: Address: [address] [place] [address]- Care Team Related Persons Name: BELLA BANGURA Address: home [address] [place] [address] Name: WONG LEVY Address: [address] [place] [address]
--- OUTSIDE RECORDS SUMMARY | 2024-05-19 15:37 | XMS_ITS | Continuity of Care Document ---
Author Organization [facility] Address [address] [place] [address]- Care Team Providers Care Truck Driving Name Role Phone Petey ALICIA, Rosalinda Primary Care Physician [place] [facility] [place] 06/03/20 [facility] [address] [place] [address]- [facility] Allergies, Adverse Reactions, Alerts Substance Reaction Severity Status NKA Active Medications inFLIXimab-dyyb 100 mg intravenous injection See Instructions, 600 mg q 6 weeks IV Infusion, # 6 each, 11 Refills, Maintenance, 11/15/19 11:31:00 EST, [facility], 159.2, cm, 04/27/19 15:25:00 EDT, Height, 55.5, kg, 04/27/19 15:25:00 EDT, Dry Weight Start Date: 11/15/19 Status: Ordered Ortho Micronor 0.35 mg oral tablet 1 tablet = 0.35 mg, By Mouth, Daily, # 84 tablet, 2 Refills, Maintenance, 11/28/19 16:36:00 EDT, Tablet, [id number], please give 3 month supply (3 packs) at a time, 161, cm, 11/28/19 16:07:00EDT, Height, 60.5, kg, 11/28/19 16:07:00 EDT, Dry W... Start Date: 11/28/19 Status: Ordered Pepcid AC Maximum Strength 20 mg oral tablet 20 mg, By Mouth, 2 times a day, # 60 Doses, Refills 6, Tot. Refills 6, Maintenance, 08/05/19 12:19:20 EST, Route to Pharmacy Electronically, [id number], [id number] Start Date: 08/05/19 Stop Date: [...] ant Abdominal pain(Confirmed) Active Crohns disease(Confirmed) Active Social History Social History Type Response Smoking Status Never (less than 100 in lifetime); Tobacco user in household: No entered on: 12/14/18 Sex
--- OUTSIDE RECORDS SUMMARY | 2024-05-19 15:37 | XMS_ITS | Continuity of Care Document ---
Author Organization [facility] Address [address] [place] [address]- Care Team Providers Care Non Destructive Testing Technician Name Role Phone Radha FELICIANO, Nabila Rucker Primary Care Physician Encounter [facility] [place] Date(s): 05/07/22 - 06/06/22 [facility] [address] [place] [address]- Attending Physician: Margaux Jauregui Admitting Physician: Margaux Jauregui Referring Physician: AdmtrMargaux Allergies, Adverse Reactions, Alerts No Known Allergies Medications Dulcolax 5 mg oral enteric coated tablet 3 tablet = 15 mg, By Mouth, Once, # 3 tablet, 0 Refills, Soft Stop, 05/07/22 11:52:00 EDT, [id number], Partial fill upon patient request if the prescription is for a schedule II opioid drug.,160.8, cm, 05/07/22 11:35:00 EDT, Height, 62.9, kg,... Start Date: 05/07/22 Status: Ordered melatonin 3 mg oral tablet [...] 3 Refills, Maintenance, 12/12/21 14:04:00 EDT, Tablet, [id number], Partial fill upon patient request if the prescription is for a schedule IIopioid drug., 160, cm, 12/12/21 13:24:00 EDT, [facility]... Start Date: 12/12/21 Status: Ordered norethindrone 5 mg oral tablet See Instructions, TAKE 2 TABLETS BY MOUTH IN THE MORNING AND 1 TABLET IN THE EVENING: TOTAL DOSE 15MG, # 90 tablet, Refills 0, Tot. Refills 0, Maintenance, 05/28/22 17:59:00 EDT, Instructions Replace Required Details, Route to Pharmacy Electronically... Start Date: 05/28/22 Status: Ordered norethindrone 5 mg oral tablet 10 mg, 2, tablet, By Mouth, Daily, # 60 tablet, Refills 0, Tot. Refills 0, Maintenance, 05/11/22 10:33:00 EDT, Route to Pharmacy Electronically, [facility]/pharmacy #[id number], Partial fill upon patient request if the prescription is for a schedule II opioid drug... Start Date: 05/11/22 Status: Ordered Vitamin D3 2000 intl units [...] in household: No entered on: 12/14/18 Sex Care Team Personnel Name: Nabila Garcia NP Address: [address] [place] [id number]
--- OUTSIDE RECORDS SUMMARY | 2024-05-19 15:37 | XMS_ITS | Continuity of Care Document ---
Author Organization [facility] em Address Unknown Care Team Providers Care Signalman Name Role Phone Rosalinda Angelo MD Primary Care Physician [phone] Encounter [facility] [place] Date(s): 11/28/19 - 12/05/19 [facility] Attending Physician: Andreina Bermudez MD Referring Physician: Rosalinda Angelo MD Allergies, Adverse Reactions, Alerts Substance Reaction Severity Status NKA Active Medications inFLIXimab-dyyb 100 mg intravenous injection See Instructions, 600 mg q 6 weeks IV Infusion, # 6 each, 11 Refills, Maintenance, 11/15/19 11:31:00 EST, [facility], 159.2, cm, 04/27/19 15:25:00 EDT, Height, 55.5, kg, 04/27/19 15:25:00 EDT, Dry Weight Start Date: 11/15/19 Status: Ordered Ortho Micronor 0.35 mg oral tablet 1 tablet = 0.35 mg, By Mouth, Daily, # 84 tablet, 2 Refills, Maintenance, 11/28/19 16:36:00 EDT, Tablet, [facility]/pharmacy #[id number], please give 3 month supply (3 packs) at a time, 161, cm, 11/28/19 16:07:00EDT, Height, 60.5, kg, 11/28/19 16:07:00 EDT, Dry W... Start Date: 11/28/19 Status: Ordered Pepcid AC Maximum Strength 20 mg oral tablet 20 mg, By Mouth, 2 times a day, # 60 Doses, Refills 6, Tot. Refills 6, Maintenance, 08/05/19 12:19:20 EST, Route to Pharmacy Electronically, [id number], [id number] Start Date: 08/05/19 Stop Date: [...] oldest [Reference Range]: 1 Height 161 cm (11/28/19 4:07 PM) Weight 60.5 kg (11/28/19 4:07 PM) Pulse Rate [55-90 bpm] 79 bpm (11/28/19 4:07 PM) Body Mass Index [18.5-24.99] 23.34 (11/28/19 4:07 PM) Blood Pressure [71-110/30-71 mm Hg] 120/ 70mm Hg *H* (11/28/19 4:07 PM) Respiratory Rate [16-30 br/min] 20 br/mi n (11/28/19 4:07 PM) Temperature [96.8-100.4 DegF] 98.4 DegF (11/28/19 4:07 PM) Blood pressure sites Arm, right (11/28/19 4:07 PM) Temperature Route Oral (11/28/19 4:07 PM) Dry Weight 60.5 kg (11/28/19 4:07 PM) Weight Obtained Via Standing scale (11/28/19 4:07 PM) Dry Weight Obtained Via Standing scale (11/28/19 4:07 PM) Social History Social History Type Response Smoking Status Never (less than 100 in lifetime); Tobacco user in household: No entered on: 12/14/18 Sex
--- OUTSIDE RECORDS SUMMARY | 2024-05-19 15:37 | XMS_ITS | Continuity of Care Document ---
Author Organization [facility] ter Address [address] [place] [address]- Care Team Providers Care Enterprise Project Manager Name Role Phone Petey ALICIA, Rosalinda Primary Care Physician [phone] Encounter [facility] [place] Date(s): 12/04/20 - 12/04/[address] [address] Discharge Disposition: A-D/C Home Attending Physician: Manfred Gamble DDS, MD Admitting Physician: Manfred Gamble DDS, MD Referring Physician: Manfred Gamble DDS, MD Allergies, Adverse Reactions, Alerts Substance Reaction Severity Status NKA Active Medications acetaminophen-oxyCODONE 325 mg-5 mg oral tablet 1, tablet, By Mouth, Every 6 hours, PRN, if patient can tolerate po for 2 days, # 8 tablet, Refills0, Tot. Refills 0, Acute, Pain , Mild, 12/06/20 16:20:00 EDT, 12/04/20 16:20:00 EDT, Print Requisition, Tablet, Partial fill upon patient request if th... Start Date: 12/04/20 Stop Date: 12/06/20 Status: Ordered chlorhexidine topical 0.12% liquid 15 mL = 0.018 Gm, Swish and Spit, 2 times a day, # 210 mL, 1 Refills, Maintenance, 12/04/20 16:19:00 EDT, Oral Rinse, [id number], Partial fill upon patient request if the prescription is for a schedule II opioid drug., 15 mL Swish and Spit 2 t... Start Date: 12/04/20 Stop Date: 12/18/20 Status: Ordered clindamycin 300 mg oral capsule 1 capsule = 300 mg, By Mouth, Every 8 hours, for 3 days, # 9 capsule, 0 Refills, Acute 12/07/20 16:21:00 EDT, 12/04/20 16:21:00 EDT, Capsule, [facility]/pharmacy #[id number], Partial fill upon patient request if the prescription is for a schedule II opioid drug.,... Start Date: 12/04/20 Stop Date: 12/07/20 Status: Ordered ibuprofen 600 mg oral tablet 600 mg, By Mouth, 3 times a day, PRN, for 5 days, # 15 tablet, Refills 1, Tot. Refills 1, Acute 12/14/20 16:20:00 EDT, Pain , Mild, 12/04/20 16:20:00 EDT, Route to Pharmacy Electronically, [facility]/pharmacy #[id number], Partial fill upon patient request if the p... Start Date: 12/04/20 Stop Date: 12/14/20 Status: Ordered melatonin 3 mg oral tablet 1 tablet = 3 mg, By Mouth, Daily at bedtime, PRN for insomnia, 1-2 tablets at night as needed, # 60tablet, 1 Refills, Maintenance, 12/02/20 11:04:00 EDT, Tablet, [facility]/pharmacy #[id number], Partial fill upon patient request if the prescription is for a sched... Start Date: 12/02/20 Status: Ordered Ortho Micronor 0.35 mg oral tablet 1 tablet = 0.35 mg, By Mouth, Daily, # 84 tablet, 2 Refills, Maintenance, 12/02/20 11:08:00 EDT, Tablet, [facility]/pharmacy #[id number], please give 3 month supply (3 [...] Most recent to oldest [Reference Range]: 1 2 3 Weight 61.1 kg (12/04/20 2:21 PM) Oxygen Saturation [94-100 %] 98 % (12/04/20 5:30 PM) 97 % (12/04/20 5:15 PM) 100 % (12/04/20 5:00 PM) Pulse Rate [55-90 bpm] 80 bpm (12/04/20 2:21 PM) Blood Pressure [90-138/55-84 mm Hg] 122/86mm Hg (12/04/20 5:30 PM) 127/89mm Hg (12/04/20 5:15 PM) 121/87mm Hg (12/04/20 5:00 PM) Respiratory Rate [16-30 br/min] 21 br/min (12/04/20 5:30 PM) 19 br/min (12/04/20 5:15 PM) 16 br/min (12/04/20 5:00 PM) Temperature [96.8-100.4 DegF] 97.5 DegF (12/04/20 5:30 PM) 97.6 DegF (12/04/20 4:30 PM) 97.4 DegF (12/04/20 2:21 PM) Liters per Minute 5 L/min (12/04/20 5:00 PM) 5 L/min (12/04/20 4:45 PM) 5 L/min (12/04/20 4:30 PM) Mode of Delivery (Oxygen) Room air (12/04/20 5:30 PM) Room air (12/04/20 5:15 PM) Simple face mask (12/04/20 5:00 PM) Blood pressure sites Arm, left (12/04/20 4:30 PM) Arm, left (12/04/20 2:21 PM) Temperature Route Temporal (12/04/20 5:30 PM) Temporal (12/04/20 4:30 PM) Temporal (12/04/20 2:21 PM) Dry Weight 61.1 kg (12/04/20 2:21 PM) Weight Obtained Via Standing scale (12/04/20 2:21 PM) Dry Weight Obtained Via Standing scale (12/04/20 2:21 PM) Social History Social History Type Response Smoking Status Never (less than 100 in lifetime); Tobacco user in household: No entered on: 12/14/18 Sex
--- OUTSIDE RECORDS SUMMARY | 2024-05-19 15:37 | XMS_ITS | Continuity of Care Document ---
Author Organization [facility] Address [address] [place] [address]- Care Team Providers Care Starter Cup Powder Mixer Name Role Phone Radha FELICIANO, Nabila Rucker Primary Care Physician [place] [facility] [place] Date(s): 05/07/22 - 05/14/22 [facility] [address] [place] [address]- Attending Physician: Peter Corral MD Referring Physician: Nabila Garcia NP Allergies, Adverse Reactions, Alerts No Known Allergies [...] IIopioid drug., 160, cm, 12/12/21 13:24:00 EDT, [facility]... Start Date: 12/12/21 Status: Ordered norethindrone 5 mg oral tablet 10 mg, 2, tablet, By Mouth, Daily, # 60 tablet, Refills 0, Tot. Refills 0, Maintenance, 05/11/22 10:33:00 EDT, Route to Pharmacy Electronically, [facility]/pharmacy #[id number], Partial fill upon patient request if the prescription is for a schedule II opioid drug... Start Date: 05/11/22 Status: Ordered Vitamin D3 2000 intl units oral tablet 1 tablet = 2,000 International_Units, By Mouth, Daily, # 30 tablet, 6 Refills, Maintenance, 02/06/20 15:44:00 EDT, [facility]/pharmacy #[id number], 161, cm, 01/23/20 8:38:00 EDT, Height, 60.5, kg, 01/23/20 8:38:00 EDT, Dry Weight Start Date: 02/06/20 Stop Date: 09/03/20 Status: Ordered Problem List Condition Effective Dates Status Health Status Inform ant Abdominal pain(Confirmed) Active Crohns disease(Confirmed) Active Hepatitis(Confirmed) Active Vital Signs Most recent to oldest [Reference Range]: 1 Height 160.8 cm (05/07/22 11:35 AM) Weight 62.9 kg (05/07/22 11:35 AM) Oxygen Saturation [94-100 %] 100 % (05/07/22 11:35 AM) Pulse Rate [55-90 bpm] 92 bpm *H* (05/07/22 11:35 AM) Body Mass Index [18.5-24.99] 24.33 (05/07/22 11:35 AM) Blood Pressure [90-138/55-84 mm Hg] 125/ 76mm Hg (05/07/22 11:35 AM) Respiratory Rate [16-30 br/min] 16 br/mi n (05/07/22 11:35 AM) Temperature [96.8-100.4 DegF] 97.7 DegF (05/07/22 11:35 AM) Mode of Delivery (Oxygen) Room air (05/07/22 11:35 AM) Blood pressure sites Arm, left (05/07/22 11:35 AM) Temperature Route Temporal (05/07/22 11:35 AM) Dry Weight 62.9 kg (05/07/22 11:35 AM) Weight Obtained Via Standing scale (05/07/22 11:35 AM) Dry Weight Obtained Via Standing scale (05/07/22 11:35 AM) Social History Social History Type Response Smoking Status Never (less than 100 in lifetime); Tobacco user in household: No entered on: 12/14/18 Sex Care Team Personnel Name: Nabila Garcia NP Address: [address] [place], [place] [address]
--- OUTSIDE RECORDS SUMMARY | 2024-05-19 15:38 | XMS_ITS | Continuity of Care Document ---
Author Organization [facility] Sil[facility]re [employer] Address [address] [place] [address], [place], [place] [address]- Care Team Providers Care Vacuum System Tester Name Role Phone Radha FELICIANO, Nabila Rucker Primary Care Physician Encounter [facility] [place] Date(s): 02/12/23 - 02/19/23 [facility] [employer] [facility] [address] [facility], [address] [place] [address]- Attending Physician: Dayna ALICIA, La [place] Referring Physician: Andreina Bermudez MD Allergies, Adverse Reactions, Alerts No Known Allergies [...] a sched... Start Date: 12/02/20 Status: Ordered sertraline 50 mg oral tablet [...] oldest [Reference Range]: 1 Height 160.8 cm (02/12/23 11:09 AM) Weight 66.68 kg (02/12/23 11:09 AM) Body Mass Index [18.5-24.99 kg/m2] 25.79 kg/m2 *H* (02/12/23 11:09 AM) Blood Pressure [90-138/55-84 mm Hg] 127/ 74mm Hg (02/12/23 11:09 AM) Blood pressure sites Arm, right (02/12/23 11:09 AM) Weight Obtained Via Standing scale (02/12/23 11:09 AM) Social History Social History Type Response Smoking Status Never (less than 100 in lifetime); Tobacco user in household: No entered on: 12/14/18 Sex Patient Care team information Care Team Personnel Name: Masha Perez RN Position: S RN Member Role: Primary Care Nurse Name: Nabila Garcia NP Position: Reference Physician Member Role: PCP Address: Address: [address] [place] [id number]- Care Team Related Persons Name: BELLA BANGURA Address: home [address] [place] [id number] Name: WONG LEVY Address: home [address] [place] [address]
--- OUTSIDE RECORDS SUMMARY | 2024-05-19 15:38 | XMS_ITS | Continuity of Care Document ---
Author Organization [facility] [employer] Address [address] [place] [address], [address] [place] [address]- Care Team Providers Care Aerosol Line Operator Name Role Phone Petey ALICIA, Rosalinda Primary Care Physician [id number] Date[facility] - 02[facility]26/20 [facility] [employer] [employer] [address] [facility] [place] [address]- [facility] Attending Physician: Deni ALICIA, Amalia Morris Referring Physician: Andreina Bermudez MD Allergies, Adverse Reactions, Alerts Substance Reaction Severity Status NKA Active Medications inFLIXimab-dyyb 100 mg intravenous injection See Instructions, 600 mg q 6 weeks IV Infusion, # 6 each, 11 Refills, Maintenance, 11/15/19 11:31:00 EST, [facility], 159.2, cm, 04/27/19 15:25:00 EDT, Height, 55.5, kg, 04/27/19 15:25:00 EDT, Dry Weight Start Date: 11/15/19 Status: Ordered Ortho Micronor 0.35 mg oral tablet 1 tablet = 0.35 mg, By Mouth, Daily, # 84 tablet, 2 Refills, Maintenance, 11/28/19 16:36:00 EDT, Tablet, [id number], please give 3 month supply (3 packs) at a time, 161, cm, 11/28/19 16:07:00EDT, Height, 60.5, kg, 11/28/19 16:07:00 EDT, Dry W... Start Date: 11/28/19 Status: Ordered Pepcid AC Maximum Strength 20 mg oral tablet 20 mg, By Mouth, 2 times a day, # 60 Doses, Refills 6, Tot. Refills 6, Maintenance, 08/05/19 12:19:20 EST, Route to Pharmacy Electronically, [id number], [facility]/pharmacy #[id number] Start Date: 08/05/19 Stop Date: 03/02/20 Status: Ordered Vitamin D3 2000 intl units oral tablet 1 tablet = 2,000 International_Units, By Mouth, Daily, # 30 tablet, 6 Refills, Maintenance, 02/06/20 15:44:00 EDT, [facility]/pharmacy #[id number], 161, cm, 01/23/20 8:38:00 EDT, Height, [...]
--- OUTSIDE RECORDS SUMMARY | 2024-05-19 15:38 | XMS_ITS | Continuity of Care Document ---
Author Organization [facility] em Address Unknown Care Team Providers Care Extract Mixer Name Role Phone Radha FELICIANO, Nabila Rucker Primary Care Physician [place] [facility] [place]28[place]22 - 07/22/22 [facility] Attending Physician: Andreina Bermudez MD Admitting Physician: Andreina Bermudez MD Allergies, Adverse Reactions, [...] Refills, Maintenance, 12/02/20 11:04:00 EDT, Tablet, [id number], Partial fill upon patient request if the [...] on: 12/14/18 Sex Patient Care team information Personnel Name: Nabila Garcia NP Address: Address: [address] [place] [address]
--- OUTSIDE RECORDS SUMMARY | 2024-05-19 15:38 | XMS_ITS | Continuity of Care Document ---
Author Organization [facility] ter Address [address] [place] [address]- Care Team Providers Care Reconnaissance Crewmember Name Role Phone Rosalinda Angelo MD Primary Care Physician [phone] Encounter [facility] [place] Date(s): 09/30/19 - 10/07/[address] [address]- [facility] Attending Physician: Not on Staff, Attending MD Allergies, Adverse Reactions, Alerts Substance Reaction Severity Status NKA Active Medications inFLIXimab-dyyb 100 mg intravenous injection See Instructions, 600 mg q 6 weeks IV Infusion, # 6 each, 0 Refills, Maintenance, 09/27/19 13:15:00EST, [facility], 159.2, cm, 04/27/19 15:25:00 EDT, Height, 55.5, kg, 04/27/19 15:25:00 EDT, Dry Weight Start Date: 09/27/19 Status: Ordered Ortho Micronor 0.35 mg oral tablet 1 tablet = 0.35 mg, By Mouth, Daily, # 28 tablet, 2 Refills, Maintenance, 09/26/19 17:38:00 EST, Tablet, [facility]/pharmacy #[id number], 159.2, cm, 04/27/19 15:25:00 EDT, Height, 55.5, kg, 04/27/19 15:25:00 EDT,Dry Weight Start Date: 09/26/19 Status: Ordered Pepcid AC Maximum Strength 20 mg oral tablet 20 mg, By Mouth, 2 times a day, # 60 Doses, Refills 6, Tot. Refills 6, Maintenance, 08/05/19 12:19:20 EST, Route to Pharmacy Electronically, [id number], [facility]/pharmacy #[id number] Start Date: 08/05/19 Stop Date: 03/02/20 [...]
--- OUTSIDE RECORDS SUMMARY | 2024-05-19 15:38 | XMS_ITS | Continuity of Care Document ---
Author Organization [facility] Address [address] [place] [address]- Care Team Providers Care Knockup Worker Name Role Phone Radha FELICIANO, Nabila Rucker Primary Care Physician Encounter [facility] [place] Date(s): 07/09/22 - 08/08/22 [facility] [address] [place] [address]- [place] Allergies, Adverse Reactions, Alerts No Known [...] Refills, Maintenance, 12/02/20 11:04:00 EDT, Tablet, [id number], Partial fill upon patient request if the [...] Reference Physician Member Role: PCP Address: Address: [address] [place] [address]- Care Team Related Persons Name: BELLA BANGURA Address: home [address] [place] [address] Name: WONG LEVY Address: [address] [place] [address]
--- OUTSIDE RECORDS SUMMARY | 2024-05-19 15:38 | XMS_ITS | Continuity of Care Document ---
Author Organization [facility] em Address Unknown Care Team Providers Care Finish Specialist Name Role Phone Radha FELICIANO, Nabila Rucker Primary Care Physician En[facility] [place] Date(s): 07/06/22 - 09/23/22 [facility] Attending Physician: Andreina Bermudez MD Admitting Physician: Andreina Bermudez MD Allergies, Adverse Reactions, Alerts No Known Allergies Medications Low-Ogestrel 30 mcg-0.3 mg oral tablet 1 tablet, By Mouth, Daily, # 28 tablet, 6 Refills, Maintenance, 09/03/22 11:44:00 EST, Tablet, [id number], Partial fill upon patient request if the prescription is for a schedule II opioid drug., 1 tablet By Mouth Daily, 160.8, cm, 09/03/22 11... Start Date: 09/03/22 Status: Ordered melatonin 3 mg oral tablet [...] Reference Physician Member Role: PCP Address: Address: [address] [place] [address]- Care Team Related Persons Name: BELLA BANGURA Address: home [address] [place] [address] Name: WONG LEVY Address: home [address] [place] [address]
--- OUTSIDE RECORDS SUMMARY | 2024-05-19 15:38 | XMS_ITS | Continuity of Care Document ---
Author Organization [facility] ter Address [address] [place] [address]- Care Team Providers Care Weight Yardage Checker Name Role Phone Rosalinda Angelo MD Primary Care Physician [place] [facility] [place](s[place] 10/13/19 - 12/25/[address] [address] [facility] Attending Physician: Peter Corral MD Admitting Physician: Peter Corral MD Referring Physician: Peter Corral MD Allergies, Adverse Reactions, Alerts Substance Reaction Severity Status NKA Active Medications inFLIXimab-dyyb 100 mg intravenous injection See Instructions, 600 mg q 6 weeks IV Infusion, # 6 each, 11 Refills, Maintenance, 11/15/19 11:31:00 EST, [facility], 159.2, cm, 04/27/19 15:25:00 EDT, Height, 55.5, kg, 04/27/19 15:25:00 EDT, Dry Weight Start Date: 11/15/19 Status: Ordered Ortho Micronor 0.35 mg oral tablet 1 tablet = 0.35 mg, By Mouth, Daily, # 84 tablet, 2 Refills, Maintenance, 11/28/19 16:36:00 EDT, Tablet, [id number], please give 3 month supply (3 packs) at a time, 161, cm, 11/28/19 16:07:00EDT, Height, 60.5, kg, 11/28/19 16:07:00 EDT, Dry W... Start Date: 11/28/19 Status: Ordered Pepcid AC Maximum Strength 20 mg oral tablet 20 mg, By Mouth, 2 times a day, # 60 Doses, Refills 6, Tot. Refills 6, Maintenance, 08/05/19 12:19:20 EST, Route to Pharmacy Electronically, [id number], [facility]/pharmacy #[id number] Start Date: 08/05/19 Stop Date: 03/02/20 [...]
--- OUTSIDE RECORDS SUMMARY | 2024-05-19 15:38 | XMS_ITS | Continuity of Care Document ---
Author Organization [facility] Address [address] [place] [address]- Care Team Providers Care Telecommunications Equipment Installer Name Role Phone Radha FELICIANO, Nabila Rucker Primary Care Physician En[place] [facility] [place] Date(s): 06/05/22 - 07/05/22 [facility] [address] [place], [place] [address] Allergies, Adverse [...] tablet, Refills 0, Tot. Refills 0, Maintenance, 06/25/22 12:34:00 EDT, Route to Pharmacy Electronically, [facility]/pharmacy #[id number], Partial fill upon patient request if the prescription is for a schedule II opioid drug... Start Date: 06/25/22 Status: Ordered Vitamin D3 2000 intl units oral tablet 1 tablet = 2,000 International_Units, By Mouth, Daily, # 30 tablet, 6 Refills, Maintenance, 02/06/20 15:44:00 EDT, [facility]/pharmacy #[id number], 161, cm, 01/23/20 8:38:00 EDT, Height, 60.5, kg, 01/23/20 8:38:00 EDT, Dry Weight Start Date: 02/06/20 Stop Date: 09/03/20 Status: Ordered Problem List Condition Confirmation Course Effective Dates Status Health St atus Informant Abdominal pain Confirmed Active Crohns disease Confirmed Active Hepatitis Confirmed Active Social History Social History Type Response Smoking Status Never (less than 100 in lifetime); Tobacco user in household: No entered on: 12/14/18 Sex Patient Care team information Personnel Name: Nabila Garcia NP Address: Address: [address] [place] [address]
--- OUTSIDE RECORDS SUMMARY | 2024-05-19 15:38 | XMS_ITS | Continuity of Care Document ---
Author Organization [facility] em Address Unknown Care Team Providers Care Strap Machine Operator Name Role Phone Petey ALICAI, Rosalinda Primary Care Physician Encounter [facility] [place] Date(s): 12/02/20 - 01/01/21 [facility] Attending Physician: Margaux Jauregui Admitting Physician: Margaux Jauregui Referring Physician: Margaux Jauregui Allergies, Adverse Reactions, Alerts Substance Reaction Severity [...]
--- OUTSIDE RECORDS SUMMARY | 2024-05-19 15:38 | XMS_ITS | Continuity of Care Document ---
Author Organization [facility] G[facility] enter[facility] Address [address] [place] [address]- Care Team Providers Care Band Sawing Machine Operator Name Role Phone Rosalinda Angelo MD Primary Care Physician Encounter [place] Date(s): 02/28/21 - 03/30/21 [facility] [address] [place] [id number] Allergies, Adverse Reactions, Alerts Substance Reaction Severity [...]
--- OUTSIDE RECORDS SUMMARY | 2024-05-19 15:38 | XMS_ITS | Continuity of Care Document ---
Author Organization [facility] Gastro enterology Address [address] [place] [address]- Care Team Providers Care Industrial Relations Analyst Name Role Phone Rosalinda Angelo MD Primary Care Physician Encounter [facility] [place] Date(s): 01/29/21 - 02/28/21 [facility] [address] [place] [address]- Attending Physician: Margaux Jauregui Admitting Physician: Admtr, Margaux Referring Physician: Admtr, Ar8 Allergies, Adverse Reactions, Alerts Substance Reaction Severity [...] tablet, 6 Refills, Maintenance, 02/06/20 15:44:00 EDT, [facility]/pharmacy #[id number], 161, cm, 01/23/20 8:38:00 EDT, Height, [...]
--- OUTSIDE RECORDS SUMMARY | 2024-05-19 15:38 | XMS_ITS | Continuity of Care Document ---
Author Organization [facility] [employer] Address [address] [place] [address], [address] [place] [address]- Care Team Providers Care Meter Repairer Helper Name Role Phone Radha FELICIANO, Nabila Rucker Primary Care Physician [phone] [id number] 02/12/23 - 04/16/23 [facility] [employer] [facility] [address] [place] [address], [address] [place] [address]- Attending Physician: Not on Staff, Attending MD Referring Physician: Dayna ALICIA, [place] Allergies, Adverse Reactions, Alerts No Known Allergies [...] 68 mg, Subcutaneous Infusion, Once, mail to [address] [place] [address], [address], # 1 each, 0 Refills, Soft Stop, 03/17/23 10:48:00 EDT, [facility], Partial fill upon patient request if the [...] Reference Physician Member Role: PCP Address: Address: [address] [place] [address]- Care Team Related Persons Name: BELLA BANGURA Address: home [address] [place] [address] Name: WONG LEVY Address: home [address] [place] [address]
--- OUTSIDE RECORDS SUMMARY | 2024-05-19 15:38 | XMS_ITS | Continuity of Care Document ---
Author Organization [facility] Address Unknown Care Team Providers Care Regional Extension Service Specialist Name Role Phone Rosalinda Angelo MD Primary Care Physician Encounter [facility] [place] Date(s): 11/27/21 - 12/27/21 [facility] Allergies, Adverse Reactions, Alerts No Known Allergies Medications chlorhexidine topical 0.12% liquid 15 mL = 0.018 Gm, Swish and Spit, 2 times a day, # 210 mL, 1 Refills, Maintenance, 12/04/20 16:19:00 EDT, Oral Rinse, [facility]/pharmacy #[id number], Partial fill upon patient request if the prescription is for a schedule II opioid drug., 15 mL Swish and Spit 2 t... Start Date: 12/04/20 Stop Date: 12/18/20 Status: Ordered levonorgestrel 1.5 mg oral tablet 1.5 mg, 1, tablet, By Mouth, Once, # 1 tablet, Refills 1, Tot. Refills 1, Soft Stop, 06/12/21 9:32:00 EDT, [facility] to [facility]ically, [id number], Partial fill upon patient request if the [...] IIopioid drug., 160, cm, 12/12/21 13:24:00 EDT, .. Start Date: 12/12/21 Status: Ordered Vitamin D3 2000 intl units oral tablet 1 tablet = 2,000 International_Units, By Mouth, Daily, # 30 tablet, 6 Refills, Maintenance, 02/06/20 15:44:00 EDT, [facility]/pharmacy #[id number], 161, cm, 01/23/20 8:38:00 EDT, Height, [...]
--- OUTSIDE RECORDS SUMMARY | 2024-05-19 15:38 | XMS_ITS | Continuity of Care Document ---
Author Organization [facility] Gastro enterology Address [address] [place] [address]- Care Team Providers Care Air Cargo Ground Operations Supervisor Name Role Phone Radha FELICIANO, Nabila M Primary Care Physician Encounter [facility] [place] Date(s): 04/17/22 - 06/06/22 [facility] [address] [place] [address]- Attending Physician: Ellis ALICIA, Peter Mccullough Allergies, Adverse Reactions, Alerts No Known Allergies [...] 05/11/22 10:33:00 EDT, Route to Pharmacy Electronically, [facility]/pharmacy #[id number], Partial fill upon patient request if the prescription is for a schedule II opioid drug... Start Date: 05/11/22 Status: Ordered Vitamin D3 2000 intl units oral tablet 1 tablet = 2,000 International_Units, By Mouth, Daily, # 30 tablet, 6 Refills, Maintenance, 02/06/20 15:44:00 EDT, [facility]/pharmacy #[id number], 161, cm, 01/23/20 8:38:00 [...] Team Personnel Name: Nabila Garcia NP Address: [address] [place] [id number]
--- OUTSIDE RECORDS SUMMARY | 2024-05-19 15:38 | XMS_ITS | Continuity of Care Document ---
Author Organization [facility] Address Unknown Care Team Providers Care Classroom Teacher Name Role Phone Rosalinda Angelo MD Primary Care Physician Encounter [facility] [place] Date(s): 06/12/21 - 07/12/21 [facility] Allergies, Adverse Reactions, Alerts Substance Reaction Severity [...] 9:32:00 EDT, Route to [facility], [id number], Partial fill upon patient request if the prescription is for a schedule II opioid drug., 1... Start Date: 06/12/21 Status: Ordered melatonin 3 mg oral tablet 1 tablet = 3 mg, By Mouth, Daily at bedtime, PRN for insomnia, 1-2 tablets at night as needed, # 60tablet, 1 Refills, Maintenance, 12/02/20 11:04:00 EDT, Tablet, [id number], Partial fill upon patient request if the [...]
--- OUTSIDE RECORDS SUMMARY | 2024-05-19 15:38 | XMS_ITS | Continuity of Care Document ---
Author Organization [facility] G[facility] enter[facility] Address [address] [place] [address]- Care Team Providers Care Quality Assurance Calibrator Name Role Phone Petey ALICIA, Rosalinda Primary Care Physician [phone] [place] [facility] [place] 01/23/20 - 02/22/20 [facility] [address] [place] [address]- [facility] Attending Physician: Margaux Jauregui Admitting Physician: Margaux Jauregui Referring Physician: AdmtrMargaux Allergies, Adverse Reactions, Alerts Substance Reaction Severity Status NKA Active Medications inFLIXimab-dyyb 100 mg intravenous injection See Instructions, 600 mg q 6 weeks IV Infusion, # 6 each, 11 Refills, Maintenance, 11/15/19 11:31:00 EST, [facility], 159.2, cm, 04/27/19 15:25:00 EDT, Height, 55.5, kg, 04/27/19 15:25:00 EDT, Dry Weight Start Date: 11/15/19 Status: Ordered Ortho Micronor 0.35 mg oral tablet 1 tablet = 0.35 mg, By Mouth, Daily, # 84 tablet, 2 Refills, Maintenance, 11/28/19 16:36:00 EDT, Tablet, [id number], please give 3 month supply (3 packs) at a time, 161, cm, 11/28/19 16:07:00EDT, Height, 60.5, kg, 11/28/19 16:07:00 EDT, Dry W... Start Date: 11/28/19 Status: Ordered Pepcid AC Maximum Strength 20 mg oral tablet 20 mg, By Mouth, 2 times a day, # 60 Doses, Refills 6, Tot. Refills 6, Maintenance, 08/05/19 12:19:20 EST, Route to Pharmacy Electronically, [id number], [facility]/pharmacy #[id number] Start Date: 08/05/19 Stop Date: 03/02/20 Status: Ordered Vitamin D3 2000 intl units oral tablet 1 tablet = 2,000 International_Units, By Mouth, Daily, # 30 tablet, 6 Refills, Maintenance, 02/06/20 15:44:00 EDT, [facility]/pharmacy #[id number], 161, cm, 01/23/20 8:38:00 EDT, [...]
--- OUTSIDE RECORDS SUMMARY | 2024-05-19 15:38 | XMS_ITS | Continuity of Care Document ---
Author Organization [facility] Address Unknown Care Team Providers Care Associate Medical Director Name Role Phone Rosalinda Angelo MD Primary Care Physician [place] [facility] [place](s): 09/03/21 - 10/03/21 [facility] Allergies, Adverse Reactions, Alerts [...] 9:32:00 EDT, Route to [facility]ically, [id number], Partial fill upon patient request if the [...] mg, By Mouth, Daily, # 84 tablet, 0 Refills, Maintenance, 09/03/21 10:49:00 EST, Tablet, [id number], Partial fill upon patient request if the prescription is for a schedule IIopioid drug., 161.2, cm, 01/29/21 11:04:00 EDT, Hei... Start Date: 09/03/21 Status: Ordered Ortho Micronor 0.35 mg oral tablet 1 tablet = 0.35 mg, By Mouth, Daily, # 84 tablet, 2 Refills, Maintenance, 12/02/20 11:08:00 EDT, Tablet, [facility]/pharmacy #[id number], please give 3 month supply (3 packs) at a time, 159.6, cm, 12/02/20 10:09:00 EDT, Height, 60.3, kg, 12/02/20 10:13:00 EDT, Dry... Start Date: 12/02/20 Status: Ordered Vitamin D3 2000 intl units oral tablet 1 tablet = 2,000 International_Units, By Mouth, Daily, # 30 tablet, 6 Refills, Maintenance, 02/06/20 15:44:00 EDT, [facility]/pharmacy #[id number], 161, cm, 01/23/20 8:38:00 EDT, [...]
--- OUTSIDE RECORDS SUMMARY | 2024-05-19 15:38 | XMS_ITS | Continuity of Care Document ---
Author Organization [facility] ter Address [address] [place] [address]- Care Team Providers Care Code Clerk Name Role Phone Radha FELICIANO, Nabila Rucker Primary Care Physician [phone] Encounter [facility] [place] Date(s): 06/08/22 - 06/08/[address] [address] Discharge Disposition: A-D/C Home Attending Physician: Peter Corral MD Admitting Physician: Peter Corral MD Referring Physician: Peter Corral MD Allergies, Adverse Reactions, Alerts No Known [...] IIopioid drug., 160, cm, 12/12/21 13:24:00 EDT, Heigh... Start Date: 12/12/21 Status: Ordered norethindrone 5 [...] 05/11/22 10:33:00 EDT, Route to Pharmacy Electronically, [facility]/pharmacy #[id number], Partial fill upon [...] oldest [Reference Range]: 1 2 3 Weight 66.5 kg (06/08/22 10:38 AM) Oxygen Saturation [94-100 %] 100 % (06/08/22 12:31 PM) 100 % (06/08/22 12:17 PM) 100 % (06/08/22 12:00 PM) Pulse Rate [55-90 bpm] 95 bpm *H* (06/08/22 10:38 AM) Blood Pressure [90-138/55-84 mm Hg] 110/70mm Hg (06/08/22 12:31 PM) 138/86mm Hg (06/08/22 12:17 PM) 131/93mm Hg (06/08/22 12:00 PM) Respiratory Rate [16-30 br/min] 21 br/min (06/08/22 12:31 PM) 21 br/min (06/08/22 12:17 PM) 16 br/min (06/08/22 12:00 PM) Temperature [96.8-100.4 DegF] 98.4 DegF (06/08/22 12:31 PM) 97.7 DegF (06/08/22 11:47 AM) 98.6 DegF (06/08/22 10:38 AM) Mode of Delivery (Oxygen) Room air (06/08/22 12:00 PM) Room air (06/08/22 11:47 AM) Room air (06/08/22 10:38 AM) Blood pressure sites Arm, right (06/08/22 12:00 PM) Arm, left (06/08/22 11:47 AM) Arm, left (06/08/22 10:38 AM) Temperature Route Oral (06/08/22 12:31 PM) Axillary (06/08/22 11:47 AM) Oral (06/08/22 10:38 AM) Dry Weight 66.5 kg (06/08/22 10:38 AM) Weight Obtained Via Standing scale (06/08/22 10:38 AM) Dry Weight Obtained Via Standing scale (06/08/22 10:38 AM) Social History Social History Type Response Smoking Status Never (less than 100 in lifetime); Tobacco user in household: No entered on: 12/14/18 Sex Care Team Personnel Name: Nabila Garcia NP Address: [address] [place] [address]-
--- OUTSIDE RECORDS SUMMARY | 2024-05-19 15:38 | XMS_ITS | Continuity of Care Document ---
Author Organization [facility] Gastro enterology Address [address] [place] [address]- Care Team Providers Care Exterior Designer Name Role Phone Radha FELICIANO, Nabila Rucker Primary Care Physician [place] [facility] [place](s): 06/09/22 - 07/09/22 [facility] [address] [place], [place] [address] Allergies, Adverse Reactions, Alerts No Known Allergies Medications Low-Ogestrel 30 mcg-0.3 mg oral tablet 1 tablet, By Mouth, Daily, # 28 tablet, 3 Refills, Maintenance, 07/06/22 14:24:00 EDT, Tablet, [id number], Partial fill upon patient request if the prescription is for a schedule II opioid drug., 1 tablet By Mouth Daily, 160.8, cm, 05/28/22 11... Start Date: 07/06/22 Status: Ordered melatonin 3 mg oral tablet 1 tablet = 3 mg, By Mouth, Daily at bedtime, PRN for insomnia, 1-2 tablets at night as needed, # 60tablet, 1 Refills, Maintenance, 12/02/20 11:04:00 EDT, Tablet, [id number], Partial fill upon patient request if the [...] Personnel Name: Nabila Garcia NP Address: Address: [address] [place] [id number]
--- OUTSIDE RECORDS SUMMARY | 2024-05-19 15:38 | XMS_ITS | Continuity of Care Document ---
Author Organization [facility] em Address Unknown Care Team Providers Care Seo Team Lead Name Role Phone Radha FELICIANO, Nabila Rucker Primary Care Physician En[facility] [place] Date(s): 12/29/22 - 01/28/23 [facility] Attending Physician: Margaux Jauregui Admitting Physician: [...] Reference Physician Member Role: PCP Address: Address: [address] [place] [address]- Care Team Related Persons Name: BELLA BANGURA Address: home [address] [place] [address] Name: WONG LEVY Address: home [address] [place] [address]
--- OUTSIDE RECORDS SUMMARY | 2024-05-19 15:38 | XMS_ITS | Continuity of Care Document ---
Author Organization [facility] Gastro enterology Address [address] [place] [address]- Care Team Providers Care Manager Clinic Name Role Phone Petey ALICIA, Rosalinda Primary Care Physician [place] [facility] [place] 02/22/20 [facility] [address] [place] [address]- [facility] Attending Physician: Peter Corral MD Allergies, Adverse Reactions, Alerts Substance Reaction Severity Status NKA Active Medications inFLIXimab-dyyb 100 mg intravenous injection See Instructions, 600 mg q 6 weeks IV Infusion, # 6 each, 11 Refills, Maintenance, 11/15/19 11:31:00 EST, [facility], 159.2, cm, 04/27/19 15:25:00 EDT, Height, 55.5, kg, 04/27/19 15:25:00 EDT, Dry Weight Start Date: 11/15/19 Status: Ordered Ortho Micronor 0.35 mg oral tablet 1 tablet = 0.35 mg, By Mouth, Daily, # 84 tablet, 2 Refills, Maintenance, 11/28/19 16:36:00 EDT, Tablet, [facility]/pharmacy #[id number], please give 3 month supply (3 packs) at a time, 161, cm, 11/28/19 16:07:00EDT, Height, 60.5, kg, 11/28/19 16:07:00 EDT, Dry W... Start Date: 11/28/19 Status: Ordered Pepcid AC Maximum Strength 20 mg oral tablet 20 mg, By Mouth, 2 times a day, # 60 Doses, Refills 6, Tot. Refills 6, Maintenance, 08/05/19 12:19:20 EST, Route to Pharmacy Electronically, [id number], [id number] Start Date: 08/05/19 Stop Date: [...]
--- OUTSIDE RECORDS SUMMARY | 2024-05-19 15:38 | XMS_ITS | Continuity of Care Document ---
Author Organization [facility] Gastro enterology Address [address] [place] [address]- Care Team Providers Care Rag Room Supervisor Name Role Phone Radha FELICIANO, Nabila Rucker Primary Care Physician [phone] [place] [facility] [place](s): 05/19/22 - 06/18/22 [facility] [address] [place], [place] [address] Allergies, Adverse Reactions, Alerts No Known [...] 05/11/22 10:33:00 EDT, Route to Pharmacy Electronically, [facility]/pharmacy #[id number], Partial fill upon patient request if the prescription is for a schedule II opioid drug... Start Date: 05/11/22 Status: Ordered Vitamin D3 2000 intl units oral tablet 1 tablet = 2,000 International_Units, By Mouth, Daily, # 30 tablet, 6 Refills, Maintenance, 02/06/20 15:44:00 EDT, [facility]/pharmacy #[id number], 161, cm, 01/23/20 8:38:00 EDT, [...] Personnel Name: Nabila Garcia NP Address: Address: [address] [place] [address]
--- OUTSIDE RECORDS SUMMARY | 2024-05-19 15:38 | XMS_ITS | Continuity of Care Document ---
Author Organization [facility] em Address Unknown Care Team Providers Care Computer Application Developer Name Role Phone Radha FELICIANO, Nabila Rucker Primary Care Physician [phone] En[place] [facility] [place] Date(s): 09/03/22 - 12/05/22 [facility] Attending Physician: Andreina Bermudez MD Admitting Physician: [...] Reference Physician Member Role: PCP Address: Address: [address] [place] [address]- Care Team Related Persons Name: BELLA BANGURA Address: home [address] [place] [address] Name: WONG LEVY Address: home [address] [place] [id number]
--- OUTSIDE RECORDS SUMMARY | 2024-05-19 15:38 | XMS_ITS | Continuity of Care Document ---
Author Organization [facility] Address [address] [place] [address]- Care Team Providers Care At Home Independent Call Center Agent Name Role Phone Radha FELICIANO, Nabila Rucker Primary Care Physician [phone] [place] [facility] [place] 09/05/22 [facility] [address] [place] [address]- [place] Allergies, Adverse Reactions, Alerts No Known [...] Reference Physician Member Role: PCP Address: Address: [address] [place] [address]- Care Team Related Persons Name: BELLA BANGURA Address: home [address] [place] [address] Name: WONG LEVY Address: home [address] [place] [address]
--- OUTSIDE RECORDS SUMMARY | 2024-05-19 15:38 | XMS_ITS | Continuity of Care Document ---
Author Organization [facility] em Address Unknown Care Team Providers Care Key Filer Name Role Phone Rosalinda Angelo MD Primary Care Physician [phone] Encounter [facility] [place] Date(s): 11/28/19 - 12/08/19 [facility] Attending Physician: Margaux Jauregui Admitting Physician: Margaux Jauregui Referring Physician: Margaux Jauregui Allergies, Adverse Reactions, Alerts Substance Reaction Severity Status NKA Active Medications inFLIXimab-dyyb 100 mg intravenous injection See Instructions, 600 mg q 6 weeks IV Infusion, # 6 each, 11 Refills, Maintenance, 11/15/19 11:31:00 EST, [facility], 159.2, cm, 04/27/19 15:25:00 EDT, Height, 55.5, kg, 04/27/19 15:25:00 EDT, Dry Weight Start Date: 11/15/19 Status: Ordered Ortho Micronor 0.35 mg oral tablet 1 tablet = 0.35 mg, By Mouth, Daily, # 84 tablet, 2 Refills, Maintenance, 11/28/19 16:36:00 EDT, Tablet, [facility]/pharmacy #[id number], please give 3 month supply (3 packs) at a time, 161, cm, 11/28/19 16:07:00EDT, Height, 60.5, kg, 11/28/19 16:07:00 EDT, Dry W... Start Date: 11/28/19 Status: Ordered Pepcid AC Maximum Strength 20 mg oral tablet 20 mg, By Mouth, 2 times a day, # 60 Doses, Refills 6, Tot. Refills 6, Maintenance, 08/05/19 12:19:20 EST, Route to Pharmacy Electronically, [id number], [id number] Start Date: 08/05/19 Stop Date: [...]
--- OUTSIDE RECORDS SUMMARY | 2024-05-19 15:38 | XMS_ITS | Continuity of Care Document ---
Author Organization [facility] Linh stuartNight Out[facility] Address [address] [place] [address], [address] [address]- Care Team Providers Care Senior Production Manager Name Role Phone Rosalinda Angelo MD Primary Care Phys[id number]): [facility]19[facility]20 - 03/20/20 [facility] [place] [facility] [address] [place] [address]- [facility] Attending Physician: Margaux Jauregui Admitting Physician: AdmMargaux fontenot Referring Physician: AdmtrMargaux Allergies, Adverse Reactions, Alerts Substance Reaction Severity Status NKA Active Medications inFLIXimab-dyyb 100 mg intravenous injection See Instructions, 600 mg q 6 weeks IV Infusion, # 6 each, 11 Refills, Maintenance, 11/15/19 11:31:00 EST, [facility], 159.2, cm, 04/27/19 15:25:00 EDT, Height, 55.5, kg, 04/27/19 15:25:00 EDT, Dry Weight Start Date: 11/15/19 Status: Ordered Ortho Micronor 0.35 mg oral tablet 1 tablet = 0.35 mg, By Mouth, Daily, # 84 tablet, 2 Refills, Maintenance, 11/28/19 16:36:00 EDT, Tablet, [facility]/pharmacy #[id number], please give 3 month supply (3 packs) at a time, 161, cm, 11/28/19 16:07:00EDT, Height, 60.5, kg, 11/28/19 16:07:00 EDT, Dry W... Start Date: 11/28/19 Status: Ordered Pepcid AC Maximum Strength 20 mg oral tablet 20 mg, By Mouth, 2 times a day, # 60 Doses, Refills 6, Tot. Refills 6, Maintenance, 08/05/19 12:19:20 EST, Route to Pharmacy Electronically, [id number], [facility]/pharmacy #[id number] Start Date: 08/05/19 Stop Date: 03/02/20 Status: Ordered Vitamin D3 2000 intl units oral tablet 1 tablet = 2,000 International_Units, By Mouth, Daily, # 30 tablet, 6 Refills, Maintenance, 02/06/20 15:44:00 EDT, [facility]/pharmacy #[id number], 161, cm, 01/23/20 [...]
--- OUTSIDE RECORDS SUMMARY | 2024-05-19 15:38 | XMS_ITS | Continuity of Care Document ---
Author Organization [facility] Address Unknown Care Team Providers Care Investment Strategist Name Role Phone Radha FELICIANO, Nabila Rucker Primary Care Physician Encounter [facility] Date(s): 04/02/22 - 05/02/22 [facility] Allergies, Adverse Reactions, Alerts No Known Allergies Medications melatonin 3 mg oral tablet 1 tablet = 3 mg, By Mouth, Daily at bedtime, PRN for insomnia, 1-2 tablets at night as needed, # 60tablet, 1 Refills, Maintenance, 12/02/20 11:04:00 EDT, Tablet, [facility]/pharmacy #[id number], Partial fill upon patient request [...] tablet, Refills 0, Tot. Refills 0, Maintenance, 04/17/22 10:23:00 EDT, Route to Pharmacy Electronically, [facility] #[id number], Partial fill upon patient request if the prescription is for a schedule II opioid drug... Start Date: 04/17/22 Status: Ordered Vitamin D3 2000 intl units [...]
--- OUTSIDE RECORDS SUMMARY | 2024-05-19 15:38 | XMS_ITS | Continuity of Care Document ---
Author Organization [facility] Silvestre Unda [facility] Address [address] [place] [address], [address] [place] [address]- Care Team Providers Care Returned Goods Receiving Clerk Name Role Phone Radha FELICIANO, Nabila Rucker Primary Care Physician Encounter [facility] Date(s): 04/19/23 - 05/19/23 [facility] Adyuka [facility] [address] [place] [address], [address] [place], [place] [address] Attending Physician: AdmMargaux fontenot Admitting Physician: AdmtrMargaux Referring Physician: Admtr, Ar8 Allergies, Adverse Reactions, Alerts No Known Allergies [...] mg, Subcutaneous Infusion, Once, mail to [address] [place] [address] [place], [address], # 1 each, 0 Refills, Soft Stop, 03/17/23 10:48:00 EDT, [facility], Partial fill upon patient request if the [...] Care Nurse Name: Bette Morgan RN Position: Alyce PALACIO RN Member Role: Primary Care Nurse Name: Nabila Garcia NP Position: Reference Physician Member Role: PCP Address: Address: [address] [place] [address]- Care Team Related Persons Name: BELLA BANGURA Address: home [address] [place] [id number] Name: WONG LEVY Address: home [address] [place] [address]
--- OUTSIDE RECORDS SUMMARY | 2024-05-19 15:38 | XMS_ITS | Continuity of Care Document ---
Author Organization [facility] em Address Unknown Care Team Providers Care Safety Intern Name Role Phone Rosalinda Angelo MD Primary Care Physician [place] [facility] [place]s): 06/12/21 - 07/12/21 [facility] Attending Physician: Margaux Jauregui Admitting Physician: AdmtrMargaux Referring Physician: AdmtrMargaux Allergies, Adverse Reactions, Alerts Substance Reaction Severity Status NKA Active Medications chlorhexidine topical 0.12% liquid 15 mL = 0.018 Gm, Swish and Spit, 2 times a day, # 210 mL, 1 Refills, Maintenance, 12/04/20 16:19:00 EDT, Oral Rinse, [facility]/pharmacy #[id number], Partial fill upon patient request if the prescription is for a schedule II opioid drug., 15 mL Swish and Spit 2 t... Start Date: 12/04/20 Stop Date: 12/18/20 Status: Ordered levonorgestrel 1.5 mg oral tablet 1.5 mg, 1, tablet, By Mouth, Once, # 1 tablet, Refills 1, Tot. Refills 1, Soft Stop, 06/12/21 9:32:00 EDT, Route to Pharmacy Electronically, [facility]/pharmacy #[id number], Partial fill upon patient request if the prescription is for a schedule II opioid drug., 1... Start Date: 06/12/21 Status: Ordered melatonin 3 mg oral tablet 1 tablet = 3 mg, By Mouth, Daily at bedtime, PRN for insomnia, 1-2 tablets at night as needed, # 60tablet, 1 Refills, Maintenance, 12/02/20 11:04:00 EDT, Tablet, [id number], Partial fill upon patient request if the [...]
--- NOTE | 2024-05-19 16:27 | AM.OFFVISNUR ---
Intake Visit Reasons: hep b shot Allergies No Known Allergies Allergy (Verified 05/16/24 10:34) Assessment & Plan Assessment & Plan Orders: Orders Hepatitis B Adult Immunization Today Z23 - Encounter for immunization Medications: New Engerix-B (PF) (hepatitis B virus vacc.rec(PF)) 1 mL IM ONCE 1 mL 0RF NS Z23 - Encounter for immunization
== END ==
LOC: HO.HMGFM 15:35
PROVIDERS: PCP Nurse Practitioner Family; Visit Provider Nurse Practitioner Family
DX: Z23 Encounter for immunization (principal)
CPT/HCPCS: 90471; 90746

== ENCOUNTER 2024-09-08 11:51 | Outpatient (AMB) | payer OTHER, SELFPAY ==
--- NOTE | 2024-09-08 11:52 | A.OFFPC_ITS ---
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 Is last menstrual period known: No (nexplanon) Post menopausal: No Patient : No Allergies No Known Allergies Allergy (Verified 09/08/24 12:08) Medication List - Last Reconciled 09/08/24 by Eugene Denson CNP etonogestrel (Nexplanon) subdermal fluoxetine 20 mg PO DAILY 90 days hydroxyzine HCl 25 mg PO BID PRN tretinoin 0.025% appl topical BEDTIME Tobacco use date assessed: 09/08/24 Dental Screening Dental Screen Date: 09/08/24 Did you have a dental visit in the last 12 months?: Yes Did you have a dental problem in the last 6 months where you did not have access to dental care?: No Was dental information given to patient?: Patient has dentist HPI HPI Comments History of Present Illness Details 23-year-old female presents for anxiety, depression, and panic attacks follow-up. She admits to taking her medications as prescribed without adverse reactions. She has had increased anxiety symptoms since she was away for school. 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 She had exams every 2 weeks which was a significant stressor. Her boyfriend a month ago, while she was away at school. She started experiencing frequent panic attacks shortly after her boyfriend's deaths. Her last panic attack was two days ago. She established with a therapist at her university and has been doing weekly therapy with improvement. She is returning to school in [employer] [facility] on 09/28/2024 and will return in the summer. She exercises once a week. [facility] Medical History No pertinent past medical history Surgical History S/P wisdom tooth extraction Family History Mother Type II diabetes mellitus FH: HTN (hypertension) Social History Housing: Apartment Patient Tobacco Use Status: Never used Tobacco e-Cigarette/Vaping Use: Never Used Second Hand Smoke Exposure: Yes service: No Current occupational status: employed and student Current occupation: [employer] Cognitive needs: No Hearing needs: No Vision needs: No Questionnaire PHQ-9 Over the last 2 weeks, how often have you been bothered by any of the following problems? 1. Little interest or pleasure in doing things: several days 2. Feeling down, depressed, or hopeless: several days 3. Trouble falling or staying asleep, or sleeping too much: nearly every day 4. Feeling tired or having little energy: nearly every day 5. Poor appetite or overeating: nearly every day 6. Feeling bad about yourself - or that you are a failure or have let yourself or your family down: not at all 7. Trouble concentrating on things, such as reading the newspaper or watching television: nearly every day 8. Moving or speaking so slowly that other people could have noticed. Or the opposite - being so fidgety or restless that you have been moving around a lot more than usual: more than half the days 9. Thoughts that you would be better off or of hurting yourself in some way: not at all Total score: 16 Depression Screening Interpretation: Positive Depression Screening Follow-up: Existing condition and In treatment Depression Screening Done: Yes 48019 - PHQ-9 Billing: Yes Source: Developed by Drs. Tobias Olivia, Josey Hill, Larry Boucher and colleagues, with an educational zay from [employer]. Thrive Questionnaire Date Thrive assessed: 09/08/24 I am a: Patient What is your living situation today?: I have a steady place to live Within the past 12 months, did the food you bought not last and you didn't have the money to get more?: Never true Within the past 12 months, did you worry whether your food would run out before you got money to buy more?: Never true Do you have trouble paying for medicines?: No Do you have trouble getting transportation to medical appointments?: No Do you have trouble paying your heating and electricity bill?: No Do you have trouble taking care of your child, family member or friend?: No Do you have trouble with day-to-day activities such as bathing, preparing meals, shopping, managing finances, etc.?: No Are you currently unemployed and looking for a job?: No Are you interested in more education?: Yes Please select the resources that you would like help with: Education Currently or been in a relationship where the following occur: No concerns reported THRIVE Score: 0 AUDIT C Alcohol Use Questionnaire (AUDIT-C) 1. How often do you have a drink containing alcohol?: Monthly or less 2. How many drinks containing alcohol do you have on a typical day when you are drinking?: 1 or 2 3. How often do you have six or more drinks on one occasion?: Never Total Score: 1 Score Reviewed/Action Taken: Yes NINO-7 AMB Questionnaire NINO-7 Date NINO - 7 assessed: 09/08/24 Feeling nervous, anxious, or on edge: 3 = Nearly every day Not being able to stop or control worryin = More than half the days Worrying too much about different things: 3 = Nearly every day Trouble relaxin = More than half the days Being so restless that it is hard to sit still: 1 = Several days Becoming easily annoyed or irritable: 1 = Several days Feeling afraid as if something awful might happen: 0 = Not at all Total NINO-7 score (0-4 normal; 5-9 mild; 10-14 moderate; 15-21 severe): 12 Source: Developed by Drs. Tobias Olivia, Josey Hill, Larry Boucher and colleagues, with an educational zay from [employer]. NINO-7 Assessment Billing NINO-7 Assessment Tool: NINO-7 Assessment 93930 Physical exam (Primary Care) Vital Signs: Last Vital Signs Temp 98.6 F 09/08/24 11:59 Pulse 87 09/08/24 11:59 Resp 16 09/08/24 11:59 BP 111/62 09/08/24 11:59 Pulse Ox 98 09/08/24 11:59 Oxygen Delivery Method Room Air 09/08/24 11:59 BMI result Body Mass Index 29.1 Tobacco/Smoking Status: Tobacco use Status Tobacco use date assessed 09/08/24 09/08/24 12:05 Patient Tobacco Use Status Never used Tobacco 09/08/24 11:53 e-Cigarette/Vaping Use Never Used 09/08/24 11:53 PHQ-9: PHQ-9 Score PHQ-9: Total score 16 09/08/24 12:05 Depression Screening Interpretation: Positive Depression Screening Follow-up: Existing condition and In treatment Thrive Assessment: Date of Thrive Assessment Date Thrive assessed 09/08/24 09/08/24 12:05 Currently or been in a relationship where the following occur: No concerns reported Coding Level of Care Code Est Pt Level 4 (35015) Diagnoses Anxiety and depression F41.9; F32.A Bereavement Z63.4 Laboratory tests ordered as part of a complete physical exam (CPE) Z00.00 Additional Codes NINO-7 Assessment Billing - NINO-7 Assessment Tool: NINO-7 Assessment 75193 ([id number]) PHQ-9 - 09166 - PHQ-9 Billing: Yes ([id number]) Assessment & Plan Assessment & Plan (1) Anxiety and depression: Code(s): F41.9 - Anxiety disorder, unspecified; F32.A - Depression, unspecified Category: Medical Plan: Increase anxiety and depressive symptoms for the past few months. Medical school and recent of her boyfriend have been significant stressors. PHQ-9 and NINO-7 scores revealed moderately severe depression and moderate anxiety respectively. Will increase fluoxetine to 40 mg daily and hydroxyzine to 25 mg 3 times daily; advised to take as prescribed. Routine exercise encouraged. Advised to get lab work done before next visit. Follow-up in 2 weeks for anxiety, depression and an extended physical exam. Return sooner with symptoms or concerns. Verbalized understanding and agreed with the treatment plan. (2) Bereavement: Code(s): Z63.4 - Disappearance and of family member Category: Medical Plan: Plan as above. (3) Laboratory tests ordered as part of a complete physical exam (CPE): Code(s): Z00.00 - Encounter for general adult medical examination without abnormal findings Category: Medical Plan: Fasting labs ordered as part of a complete physical exam. Advised to fast for at least 10 hours before getting labs drawn. May drink water Verbalized understanding and agreed with treatment plan. Orders: Orders Comprehensive [place]. Panel Fast Today Z00.00 - Encounter for general adult medical examination without abnormal findings Lipid Panel Today Z00.00 - Encounter for general adult medical examination without abnormal findings TSH reflex Free T4 Today Z00. - Encounter for general adult medical examination without abnormal findings Complete Blood Count Auto Diff Today Z00.00 - Encounter for general adult medical examination without abnormal findings UA CC w/rflx Micro + Cult Today Z00.00 - Encounter for general adult medical examination without abnormal findings Medications: New fluoxetine 40 mg PO DAILY 90 days 90 caps 1RF Changed From hydroxyzine HCl 25 mg PO BID PRN 90 tabs 1RF itching To hydroxyzine HCl 25 mg PO TID PRN 90 tabs 1RF anxiety Discontinued fluoxetine Discontinued Reason: Doctor's Order 20 mg PO DAILY 90 days 90 tabs 1RF
[2024-09-08 11:59] VITALS: BP 111/62; PULSE 87; RESP 16; TEMP 37; O2SAT 98; BMI 29.1
== END 2024-09-08 12:29 | disposition home or self-care (01) ==
LOC: HO.HMCFM 11:51
PROVIDERS: PCP Nurse Practitioner Family; Visit Provider Nurse Practitioner Family
DX: F41.9 Anxiety disorder, unspecified (principal); F32.A Depression, unspecified; Z63.4 Disappearance and death of family member; Z00.00 Encounter for general adult medical examination without abnormal findings

== ENCOUNTER → 2024-09-08 11:51 | Outpatient (BNVA) | payer OTHER, SELFPAY | PROVIDERS: PCP Nurse Practitioner Family; Visit Provider Nurse Practitioner Family | DX: Z00.00 Encounter for general adult medical examination without abnormal findings (principal); F41.9 Anxiety disorder, unspecified; F32.A Depression, unspecified; F41.0 Panic disorder [episodic paroxysmal anxiety]; Z63.4 Disappearance and death of family member; Z79.899 Other long term (current) drug therapy | CPT/HCPCS: 96127; 99212 ==